=== PATIENT | male | born 1960 | race Caucasian/White ===

== ENCOUNTER 2016-04-12 18:56 | Emergency (ER) ==
--- NOTE | 2016-04-12 20:08 | PROVIDER DOCUMENTATION ---
HPI-Musculoskeletal Pain/Inj - GENERAL Chief Complaint: Extremity Pain Stated Complaint: BACK PAIN, LT LEG PAIN Time Seen by Provider: 04/12/16 20:00 Source: patient - HX OF PRESENT ILLNESS-MUSKULOSKELTAL Nature of Presenting Problem: 55 y/o M with history of seizures, HTN, depression, chronic LBP with left sided sciatica s/p back surgery to "remove bone spurs" in 1994 presents with left sided low back pain radiating down the left leg down to the knee x 3-4 months. He ambulates with a cane at baseline occasionally due to left leg pain. Pain is described as constant worse with getting up from a seated position and when walking. He has chronic numbness of left toes x 14 years. Denies any new numbness/tingling, weakness, bowel or bladder incontinence. Patient does not have a PCP right now. He has been out of his blood pressure medicine for 1 week. He is only seeing his psychiatrist for depression. Quality of Pain: reports: aching Severity in ED: moderate Onset/Duration: 1 week ago Timing: still present Any recent injury?: No Similar Symptoms Previously?: Yes Recently seen or treated by another doctor?: No Review of Systems - Adult - REVIEW OF SYSTEMS - ADULT Constitutional: reports: no symptoms reported. denies: chills, fever Eyes: reports: no symptoms reported. denies: decreased vision, blurred vision, double vision Ears, Nose, Mouth & Throat: reports: no symptoms reported. denies: ear pain, hearing loss Cardiovascular: reports: no symptoms reported. denies: chest pain Respiratory: reports: no symptoms reported. denies: cough, shortness of breath , wheezing Gastrointestinal: reports: no symptoms reported. denies: abdominal pain, nausea , vomiting Genitourinary: reports: no symptoms reported. denies: dysuria, flank pain, hematuria Musculoskeletal: reports: see HPI Integumentary: reports: no symptoms reported. denies: itching, rash Neurological: reports: see HPI Psychiatric: reports: no symptoms reported Endocrine: reports: no symptoms reported Hematologic/Lymphatic: reports: no symptoms reported Allergic/Immunologic: reports: no symptoms reported All Other Systems: Reviewed and Negative Past History - Adult - PAST MEDICAL HISTORY-ADULT Review of Records: reports: Nursing Assessment Review, Medications Reviewed Major Childhood Illnesses: reports: denies history Cardiovascular: reports: HTN Respiratory: reports: denies history Gastrointestinal: reports: GERD Obstetrical/Gynecological: reports: denies history Genitourinary: reports: denies history Musculoskeletal: reports: chronic pain Neurological: reports: Seizures/Epilepsy Psychiatric: reports: anxiety, depression Endocrine/Immune: reports: denies history Other Conditions: reports: denies history - PRIOR SURGERIES/PROCEDURES Surgical/Procedure History: reports: cholecystectomy, hernia repair, back/neck, other (hernia, testicular torsion) - IMMUNIZATION STATUS Childhood Immunizations: See Nurse Assessment Flu Vaccine: See Nurse Assessment - FAMILY HISTORY Family History: reviewed, not pertinent Physical Exam-Injury Related - Physical Exam-Injury Related Initial Vital Signs Reviewed: Yes General Appearance: appears well, alert, no apparent distress Eyes: PERRL/EOMI, pink conjunctivae Head, Ears, Nose, Mouth & Throat: normocephalic/atraumatic, moist mucous membranes Neck: non-tender, full range of motion, supple Respiratory: chest non-tender, lungs clear, normal breath sounds, no pleuratic chest pain, no respiratory distress, no accessory muscle use Cardiovascular: normal peripheral pulses, regular rate, rhythm, no edema, no gallop, no JVD, no murmur Abdominal Exam: normal bowel sounds, non tender, soft, no pulsatile mass Lymphatic: no adenopathy Back Exam: no CVA tenderness, no vertebral tenderness Extremity: other (walks with cane at baseline. left straight leg raise positive for pain). negative: pulse deficit, pedal edema, tenderness Integumentary: normal color, warm/dry. 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 negative: facial droop, focal weakness, motor weakness, sensory deficit Psych/Mental Status: normal mood/affect, normal thought content, normal thought process, oriented x 3 - Glascow Coma Score Best Eye Response (Gordon): (4) open spontaneously Best Verbal Response (Gordon): (5) oriented Best Motor Response (Gordon): (6) obeys commands [place] Total: 15 Progress - PLAN OF CARE/RESULTS Progress/Plan/Lab Results: Laboratory Tests 04/12/16 20:23 Sodium 142 Potassium 3.8 Chloride 102 Carbon Dioxide 28 Anion Gap 12 BUN 6 L Creatinine 0.7 Estimated GFR/1.73 m2 > 60 BUN/Creatinine Ratio 9 Glucose 93 Calculated Osmolality 280 Calcium 10.2 Orders Category Date Time Status FEMUR MIN 2 VIEWS LEFT [RAD] Stat Exams 04/12/16 19:22 Taken BMP [BASIC METABOLIC PANEL] [CHEM] Stat Lab 04/12/16 20:23 Completed Hydralazine [Apresoline] Med 04/12/16 20:16 Discontinued 10 mg IM NOW ONE Vital Signs Temp Pulse Resp BP Pulse Ox 04/12/16 21:47 71 18 173/94 100 04/12/16 19:11 98.1 F 83 18 174/134 96 aspirin Allergy (Mild, Verified 01/12/16 09:51) SWELLING facial swelling prednisone Allergy (Unknown, Verified 01/12/16 09:51) Unknown left arm swell Levetiracetam [Keppra] 1,000 mg PO DAILY #30 tablet 07/13/15 Lisinopril 20 mg PO DAILY #30 tablet 07/13/15 Bisoprolol Fumarate/Hctz [Bisoprolol-Hctz 5-6.25 mg Tab] 1 each PO DAILY Cyclobenzaprine [Flexeril] 10 mg PO HS #15 tablet 01/12/16 Hydrocodone/APAP 7.5 mg/325 mg [[place]-7.5] 1 each PO Q8H PRN PRN #10 tablet 07/22 Bisoprolol Fumarate/Hctz [Bisoprolol-Hctz 5-6.25 mg Tab] 1 each PO DAILY #30 tablet 04/12/16 Cyclobenzaprine [Flexeril] 10 mg PO TID #20 tablet 04/12/16 LISINOpril [Prinivil] 20 mg PO DAILY #30 tablet 04/12/16 Meloxicam [Mobic] 15 mg PO DAILY #14 tablet 04/12/16 Methylprednisolone [Medrol Dosepak] 4 mg PO DIRECTED #1 package 04/12/16 Laboratory 04/12/16 20:23 Sodium 142 Potassium 3.8 Chloride 102 Carbon Dioxide 28 Anion Gap 12 BUN 6 L Creatinine 0.7 Estimated GFR/1.73 m2 > 60 BUN/Creatinine Ratio 9 Glucose 93 Calculated Osmolality 280 Calcium 10.2 - REASSESSMENT Reassessment #1 Time Reassessed: 22:07 (BP improved without treatment. Will discharge home with refill of BP meds and symptomatic treatment for back pain. Advised patient to follow up with a PCP (info given with discharge paperwork) to follow up on BP and chronic back pain.) Status: improving - XRAY 1 XRAY: Left XRAY Study: Femur XRAY Interpretation: no acute process. hardware in good position. Departure - Departure Time of Disposition Order: 22:08 DIAGNOSIS: Chronic low back pain with left-sided sciatica, Hypertension, Elevated blood pressure reading, Noncompliance with medication regimen Disposition: HOME 01 Certified Medical Emergency: Emergent Condition: Good Additional Instructions: ED Follow Up Instructions: You have been treated by a care provider in the Emergency Department. These instructions are being provided to you so you can have an understanding of how to care for yourself upon discharge. Upon discharge from the Emergency Department, you are responsible for making arrangements for follow-up care by a physician of your choice. Take all prescribed medications as directed. Return to the Emergency Department immediately for any new or worsening symptoms. You may call the Physician Referral phone number at [phone] to obtain a list of Physicians who are taking new patients. Prescriptions: Bisoprolol Fumarate/Hctz [Bisoprolol-Hctz 5-6.25 mg Tab] 1 each PO DAILY #30 tablet Cyclobenzaprine [Flexeril] 10 mg PO TID #20 tablet Methylprednisolone [Medrol Dosepak] 4 mg PO DIRECTED #1 package Meloxicam [Mobic] 15 mg PO DAILY #14 tablet LISINOpril [Prinivil] 20 mg PO DAILY #30 tablet Referrals: None,PCP [Primary Care Provider] - Instructions: Back Pain, Adult, [id number], Hypertension Attestation - Physician/ KAYLA Attestation Patient care was provided by Advanced Practice Provider:: Yes Advanced Practice Provider:: Angela Fletcher Advanced Practice Provider documentation review:: The Mid-level provider documentation, treatment plan and medical decision making was reviewed by the physician who agrees with all treatment and medical decision making by the P.
[2016-04-12] MEDS ORDERED: APRESOLINE IM ONE (20:16)
[2016-04-12 21:07] LABS: AGAP 12; BUN 6 mg/dL (8-22); CALCIUM 10.2 mg/dL (8.8-10.2); CHLORIDE 102 mmol/L (98-107); COSMO 280; POTASSIUM 3.8 mmol/L (3.5-5.1); SODIUM 142 mmol/L (136-145); TCO2 28 mmol/L (25-35)
[2016-04-12 21:47] VITALS: BP 173/94
--- NOTE | 2016-04-13 08:59 | Diag Imaging Result Document ---
PROCEDURE NAME: FEMUR MIN 2 VIEWS LEFT - 04/12/2016 PLAIN RADIOGRAPH OF THE LEFT FEMUR, 4 VIEWS: COMPARISON: 01/12/2016. FINDINGS: The left femoral medullary bell is in stable position. There is irregularity involving the proximal femur related to a healed fracture. There is no definite acute fracture. There are degenerative changes at the left acetabular roof. These are stable. The left hip joint space appears to be preserved. IMPRESSION: Chronic-appearing posttraumatic changes at the proximal femur. No definite acute osseous abnormality.
== END 2016-04-12 22:08 | disposition home or self-care (01) ==
LOC: ED 18:56
DX: M54.42 Lumbago with sciatica, left side (principal); G89.29 Other chronic pain; I10 Essential (primary) hypertension; Z91.14 Patient's other noncompliance with medication regimen; M79.605 Pain in left leg; M25.562 Pain in left knee; M25.561 Pain in right knee; R56.9 Unspecified convulsions; Z79.899 Other long term (current) drug therapy
CPT/HCPCS: 80048

== ENCOUNTER 2018-02-23 10:44 | Inpatient (IN) ==
[2018-02-23] MEDS ORDERED: NS 1,000 ML ONE ×2 (11:19→18:31)
[2018-02-23 11:51] LABS: HEMATOCRIT 40.6 % (42.0-52.0); HEMOGLOBIN 13.3 g/dL (14.0-18.0); IMM GRAN# 0.03 X1000 (0.0-0.04); IMM GRAN% 0.2 % (0.0-0.5); LYMPH# 1.19 X1000 (1.2-3.4); LYMPH% 7.5 % (20.5-51.1); MCHC 32.8 g/dL (33-37); MCV 94.6 FL (81-99); MONO% 6.9 % (1.7-9.3); MPV 11.6 FL (7.4-10.4); NEUT# 13.51 X1000 (1.4-6.5); NEUT% 85.4 % (42.2-75.2); PLT 256 X1000 (130-400); RBC 4.29 XMIL (4.7-6.1); WBC 15.83 X1000 (4.8-10.8)
[2018-02-23] MEDS ORDERED: NS 1,000 ML IV ONE (11:52)
[2018-02-23 11:55] LABS: ALBUMIN 3.4 g/dL (3.5-5.0); CALCIUM 9.9 mg/dL (8.8-10.2); CREATININE 2.2 mg/dL (0.7-1.2); POTASSIUM 4.1 mmol/L (3.5-5.1); TOTAL BILIRUBIN 0.7 mg/dL (0.20-1.00); TOTAL PROTEIN 6.6 g/dL (6.3-8.3)
[2018-02-23 11:59] LABS: BILIRUBIN URINE NEGATIVE (NEGATIVE); BLOOD URINE TRACE (NEGATIVE); CLARITY CLEAR (CLEAR); COLOR YELLOW; GLUCOSE URINE NEGATIVE (NEGATIVE); KETONE URINE TRACE mg/dL (NEGATIVE); LEUKOCYTES URINE TRACE (NEGATIVE); NITRITE URINE POSITIVE (NEGATIVE); PROTEIN URINE 1+(30 mg/dL) mg/dL (NEGATIVE); SP GRAVITY URINE 1.025; UROBILINOGEN URINE NORMAL
[2018-02-23 12:13] LABS: UR AMPHETAMINES QUAL NONE DETECTED (NONE DETECT); UR BARBITUATES QUAL NONE DETECTED (NONE DETECT); UR BENZODIAZEPIN QUAL NONE DETECTED (NONE DETECT); UR CANNABINOIDS QUAL PRESUMPTIVE POSITIVE (NONE DETECT); UR COCAINE QUAL NONE DETECTED (NONE DETECT); UR METHADONE QUAL NONE DETECTED (NONE DETECT); UR METHAMPHETAMINE QUAL NONE DETECTED (NONE DETECT); UR OPIATES QUAL NONE DETECTED (NONE DETECT); UR OXYCODONE QUAL NONE DETECTED (NONE DETECT); UR PCP QUAL NONE DETECTED (NONE DETECT); UR PROPOXYPHENE QUAL NONE DETECTED (NONE DETECT); UR TCA QUAL NONE DETECTED (NONE DETECT)
[2018-02-23 12:48] LABS: URINE BACTERIA 2+ /HFP; URINE EPITHELIAL CELLS <10 /HPF (<10); URINE RBC <10 /HPF (<10); URINE SOURCE CATH
[2018-02-23] MEDS ORDERED: BENADRYL ONE (13:10)
[2018-02-23] MEDS ORDERED: BENADRYL IM ONE (13:21)
--- NOTE | 2018-02-23 14:42 | EKG Report ---
Test Performed on : 02/23/2018 11:17:52 AM Test Reason : ams Blood Pressure : / mmHG Vent. Rate : 059 BPM Atrial Rate : 059 BPM P-R Int : 156 ms QRS Dur : 096 ms QT Int : 444 ms P-R-T Axes : 024 053 043 degrees QTc Int : 439 ms Sinus bradycardia. Otherwise normal ECG When compared with ECG of 18-MAY-2016 14:59, No significant change was found Unconfirmed Result
[2018-02-23] MEDS ORDERED: ATIVAN IV ONE ×2 (14:53→20:49)
[2018-02-23] MEDS ORDERED: ATIVAN ONE (14:56)
[2018-02-23] MEDS ORDERED: ATIVAN IM ONE ×2 (15:07→15:39)
[2018-02-23] MEDS ORDERED: HALDOL ONE (18:13)
[2018-02-23] MEDS: HALDOL IM PRN ×2 (18:21→22:30)
[2018-02-23] MEDS ORDERED: ZOFRAN IV PRN (18:40)
[2018-02-23] MEDS ORDERED: TYLENOL PO PRN (18:40)
[2018-02-23] MEDS: ATIVAN IV PRN ×2 (19:15→23:19)
[2018-02-23] MEDS ORDERED: TYLENOL PR PRN (19:43)
--- NOTE | 2018-02-23 20:04 | HISTORY AND PHYSICAL ---
PRIMARY CARE PHYSICIAN: Unknown. CHIEF COMPLAINT: Was brought in by EMS after he was found unresponsive. EMS did a sternal rub and the patient woke up but would only state "oh shit." HISTORY OF PRESENTING ISSUE: 57-year-old male presents to [facility] ER via EMS after he was found unresponsive by his this morning. Apparently she and her smoke marijuana and it is felt that they both may have possibly had laced marijuana with spice. The patient responded to EMS by sternal rub but would only answer "oh shit" not able to answer any questions. He is confused, agitated, flailing his arms in the bed at times. If you do a sternal rub he began to flail his arms and say "oh shit. " over and over. His workup in the emergency room showed a white blood cell count of 15.83, his creatinine was 2.2. Urinalysis showed positive nitrites, trace white blood cell 2+ bacteria , his urine drug was presumptive for cannabinoids so he will be admitted to the medical unit for further evaluation and treatment . PAST MEDICAL HISTORY: Per ER record showed hypertension, GERD, chronic pain, seizures, anxiety and depression. PAST SURGICAL: Per ER record cholecystectomy, hernia repair, back and neck surgery and testicular torsion . FAMILY HISTORY: Reviewed noncontributory. SOCIAL HISTORY: Currently lives with his has been a smoker up until about 6 months ago approximately denied alcohol use per the record and uses marijuana daily but unknown amount . ALLERGIES: Aspirin and prednisone. HOME MEDICATIONS: A current list will need to be obtained and restarted as appropriate placed a order for nursing to update and confirm medications. LABORATORY DATA: Showed a white blood cell count of 15.83 , hemoglobin 13.3, hematocrit 0.6, platelets 256,000, sodium 138, potassium 4.1, chloride 101 , CO2 19, BUN 13, creatinine 2.2, glucose 100. Urinalysis with positive nitrites, trace white blood cells, 2+ bacteria. Urine drug screen presumptive positive for cannabinoid, EKG showed sinus bradycardia at 59. REVIEW OF SYSTEMS: Unable to obtain from patient. PHYSICAL EXAMINATION: Arrival he had a temperature 96, pulse 79, respirations 28, blood pressure has not been documented. GENERAL: This is a 57-year-old male lying in the bed unable to answer questions, is agitated, requires sternal rub for any arousing. He began to flail his arms and say " oh shit" over and over. HEENT: Normocephalic, atraumatic. Normal ENT inspection. Oropharynx and nares are clear. His eyes are dilated but equal and respond to light accommodation, extraocular movements are intact. LUNGS: Clear to auscultation bilaterally with equal lung expansion and chest wall movement. HEART: With regular rate and rhythm. No murmurs, rubs or gallops. ABDOMEN: Soft, nontender, nondistended. Bowel sounds are present x4 quadrants. MUSCULOSKELETAL: Unable to assess due to patient's mentation. NEUROLOGICAL: Unable to assess due to patient's mentation. ASSESSMENT: 1. Altered mental status most likely secondary to marijuana use that is most likely been laced with spice. 2. Urinary tract infection. 3. Leukocytosis. 4. Acute kidney injury. 5. Marijuana abuse. PLAN: He will be admitted to medical unit placed on telemetry, held NPO, placed on normal saline at 125 mL an hour, Rocephin 1 gram IV q.24, urine culture is pending, we obtained a Keppra level but that is a send out so it will be later before we get those results, I placed an order for nursing to update and home medication, will recheck a CBC, BMP in the a.m. Dictated by JESU Das for Sanjay Garcia MD cc: JESU Das MD [facility]
[2018-02-23] MEDS ORDERED: NS 500 ML IV ONE (20:12)
[2018-02-23] MEDS ORDERED: LEVOPHED 8 MG in D5 1/2 NS 250 ML IV SCH (20:15)
[2018-02-23] MEDS: ROCEPHIN 1 GM in NS 50 ML IV SCH (20:23)
[2018-02-23] MEDS: GEODON IM PRN (20:39)
[2018-02-23] MEDS: STERILE WATER INJ. INJ PRN (20:39)
[2018-02-23] MEDS: NS 1,000 ML IV SCH (20:57)
[2018-02-24] MEDS: ATIVAN IV PRN ×3 (04:16→20:20)
[2018-02-24] MEDS: NS 1,000 ML IV SCH ×2 (04:17→17:06)
[2018-02-24] MEDS: HALDOL IM PRN ×2 (04:29→09:43)
--- NOTE | 2018-02-24 05:00 | HISTORY AND PHYSICAL ---
ADDENDUM: This patient has been seen and examined by me [id number]. All the laboratories and vital signs were reviewed. The patient was sent to the emergency department apparently because of seizures, but then we found out that this patient was doing drugs, especially spice. This patient has been extremely agitated on and off and he has been getting treatment for that on and off as well. Apparently, as per the daughter he was using drugs with his and a neighbor. Actually his has also been hospitalized, but the neighbor did not have any problems with the drug. He is completely disoriented, agitated, and occasionally when he gets tired he is lethargic. He is been placed on restraints and he is not following commands. Blood pressure and heart rate has been stable, as well as his oxygen saturation. I have been noticing that every time this patient is sleeping he got a severe apnea. Probably this patient has sleep apnea at home, but I do not have any family members to corroborate this information. I will put this patient in the ICU, I will give him some IV fluids. Like I said he has been placed on restraints to avoid any physical problems and/or damage. We will use mostly Haldol to try to keep him relaxed. No family members are at the bedside at this moment. LABORATORY DATA: Showed a WBC of 15.8, hemoglobin 13.3, hematocrit 40.6. Sodium 138, potassium 4.1, chloride 101, bicarbonate 19, with a creatinine of 2.2 which is high. This patient has an acute kidney injury, and we will treat it with IV fluids. On the other hand he has bacteria 2+ in the urine as well as nitrites and WBCs. We will place this patient on ceftriaxone. We requested a urine culture, and I will go ahead and ask for blood culture as well. I agree with the rest of the nurse practitioner's assessment and plan. cc: Sanjay Garcia MD
--- NOTE | 2018-02-24 05:08 | HISTORY AND PHYSICAL ---
ADDENDUM: The patient is seen and examined by me [id number]. All the laboratories, images and vital signs. Consult please discard this dictation. Discard this dictation done putting please seek discard this dictation thank. DICTATION CANCELLED. cc: Sanjay Garcia MD
[2018-02-24 06:14] LABS: BASO# 0.01 X1000 (0.0-0.2); BASO% 0.1 % (0.0-0.8); HEMATOCRIT 39.6 % (42.0-52.0); HEMOGLOBIN 12.9 g/dL (14.0-18.0); IMM GRAN# 0.02 X1000 (0.0-0.04); IMM GRAN% 0.2 % (0.0-0.5); LYMPH# 2.35 X1000 (1.2-3.4); LYMPH% 20.8 % (20.5-51.1); MCHC 32.6 g/dL (33-37); MCV 95.2 FL (81-99); MONO# 1.12 X1000 (0.11-0.59); MONO% 9.9 % (1.7-9.3); MPV 11.7 FL (7.4-10.4); NEUT# 7.81 X1000 (1.4-6.5); PLT 212 X1000 (130-400); RBC 4.16 XMIL (4.7-6.1); RDW 15.4 % (11.5-14.5); WBC 11.31 X1000 (4.8-10.8)
[2018-02-24 06:30] LABS: AGAP 17; BUN 14 mg/dL (8-22); CALCIUM 9.3 mg/dL (8.8-10.2); CHLORIDE 111 mmol/L (98-107); COSMO 291; ESTIMATED GFR > 60; GLUCOSE 103 mg/dL (70-104); POTASSIUM 4.2 mmol/L (3.5-5.1); SODIUM 146 mmol/L (136-145); TCO2 18 mmol/L (25-35)
--- NOTE | 2018-02-24 08:05 | Diag Imaging Result Doc PS360 ---
EXAM: CHEST-PORTABLE INDICATION: dyspnea TECHNIQUE: One view COMPARISON: 11/19/2017 FINDINGS: The lungs are grossly clear. There is no discrete pleural fluid collection or pneumothorax. The cardiomediastinal silhouette and central vasculature are grossly unremarkable. IMPRESSION: No evidence of acute pathology by plain radiograph. Electronically signed by Jorge A Montgomery 02/24/2018 8:02 AM
[2018-02-24] MEDS ORDERED: LEVOPHED 8 MG in D5 1/2 NS 250 ML IV PRN (08:30)
[2018-02-24] MEDS: KEPPRA 1,000 MG/NS 1,000 MG/100 ML IVPB IV SCH ×2 (10:35→23:12)
[2018-02-24] MEDS: STERILE WATER INJ. INJ PRN ×2 (10:44→23:41)
[2018-02-24] MEDS: GEODON IM PRN ×2 (10:44→23:11)
[2018-02-24] MEDS: HALDOL IV PRN ×4 (12:11→23:12)
[2018-02-24] MEDS ORDERED: HALDOL IV ONE (12:28)
[2018-02-24] MEDS ORDERED: ATIVAN IV ONE (13:26)
--- NOTE | 2018-02-24 14:58 | PROGRESS NOTE ---
DATE: 02/24/2018 SUBJECTIVE: The patient is very agitated and has been very restless. He is not able to communicate because of his condition. OBJECTIVE: Vital signs: Temperature is 99.9 degrees, pulse 108 per minute, respiratory rate 22 per minute, blood pressure 106/70, pulse oximetry 98% on room air. General: The patient is agitated and is not able to communicate because of his drug overdose. Cardiovascular: First and second heart sounds are audible. Regular tachycardia is present. No murmurs or gallops are present. Respiratory: Bilateral lung air entry is good without any rales or rhonchi. Gastrointestinal: Abdomen is soft and nondistended. It is nontender on palpation, and normal bowel sounds are present. Musculoskeletal: No deformities are present. DIAGNOSTIC DATA: CBC shows reactive leukocytosis with WBC count of 11.31. The rest of the CBC is nondiagnostic. Basic metabolic panel done this morning is nondiagnostic, and urinalysis done yesterday showed 10 to 20 white blood cells per high-power field. Toxicology was positive for cannabinoids. IMPRESSION: 1. Altered mental status secondary to drug overdose secondary to marijuana suspected to be laced with "spice." 2. Urinary tract infection. 3. Acute kidney injury that has now resolved. 4. History of seizure disorder that has been stable. 5. Agitation, secondary to number 1. PLAN: The patient will remain in the Intensive Care Unit, and he will keep getting Haldol along with lorazepam IV on as needed basis for acute agitation. He will also get Geodon IM on as needed basis for acute agitation. We will see once his drug overdose gets better and the street drugs get out of his system. We will keep giving him IV fluids, and I am going to continue with ceftriaxone for urinary tract infection. His acute kidney injury has improved with IV fluids, however. Also, I have restarted his Keppra as IV for his seizure disorder. Further recommendations will be given as per outcome of these measures. cc: David Chambers MD
[2018-02-24] MEDS: ROCEPHIN 1 GM in NS 50 ML IV SCH (18:17)
[2018-02-25] MEDS: OFIRMEV 1000 MG/ISOTONIC SOLN 1,000 MG/100 ML BOTTLE IV PRN ×2 (00:45→15:12)
[2018-02-25] MEDS: NS 1,000 ML IV SCH ×3 (01:10→19:30)
[2018-02-25] MEDS: ATIVAN IV PRN ×5 (01:19→23:51)
[2018-02-25] MEDS: HALDOL IV PRN ×5 (01:28→23:50)
[2018-02-25] MEDS: MORPHINE IV PRN ×6 (02:31→23:50)
[2018-02-25] MEDS: KEPPRA 1,000 MG/NS 1,000 MG/100 ML IVPB IV SCH ×2 (10:29→23:49)
--- NOTE | 2018-02-25 10:53 | PROGRESS NOTE ---
DATE: 02/25/2018 SUBJECTIVE: Patient is lying in bed and is more awake this morning. He is able to communicate at times, although he still gets somewhat agitated at times.. OBJECTIVE: Vital Signs: Temperature 99.1 degrees, pulse 110 per minute, respiratory rate 16 per minute, blood pressure 150/88, pulse ox 97% on room air. General: Patient is alert, awake, but disoriented. He does not appear to be in any acute distress this morning. Cardiovascular System: First and second heart sounds are audible with regular tachycardia present. Respiratory System: Bilateral lung air entry is slightly decreased, but there are no rales or rhonchi present on auscultation. Gastrointestinal System: Abdomen is soft and nondistended. It is nontender on palpation and normal bowel sounds are present. DIAGNOSTIC DATA: None. IMPRESSION: 1. Altered mental status secondary to drug overdose secondary to marijuana suspected to be laced with spice. 2. Urinary tract infection. 3. History of seizure disorder that has been stable. PLAN: The patient will remain in the intensive care unit, and we will keep him on haloperidol along with lorazepam IV on an as-needed basis for acute agitation. He is suspected to have used spice, which has a very long half-life of 3 to 4 days and therefore he is expected to take a little bit longer to get better. We will continue him on IV fluids and continue with ceftriaxone for his urinary tract infection. His acute kidney injury has resolved. We will continue him on Keppra intravenously for his seizure disorder. He can probably get better and be discharged home in 2 to 3 days if continues to get better the way he has been. cc: David Chambers MD
[2018-02-25] MEDS: ROCEPHIN 1 GM in NS 50 ML IV SCH (17:46)
[2018-02-25] MEDS: GEODON IM PRN (19:55)
[2018-02-26] MEDS: HALDOL IV PRN ×2 (03:58→20:28)
[2018-02-26] MEDS: ATIVAN IV PRN ×3 (03:59→20:28)
[2018-02-26] MEDS: MORPHINE IV PRN ×5 (03:59→20:34)
[2018-02-26 06:30] LABS: EOS# 0.33 X1000 (0.0-0.7); EOS% 2.4 % (0.0-10.0); HEMATOCRIT 40.8 % (42.0-52.0); HEMOGLOBIN 13.1 g/dL (14.0-18.0); IMM GRAN# 0.04 X1000 (0.0-0.04); IMM GRAN% 0.3 % (0.0-0.5); LYMPH% 7.3 % (20.5-51.1); MCH 30.5 PG (27-31); MCHC 32.1 g/dL (33-37); MCV 95.1 FL (81-99); MONO# 1.31 X1000 (0.11-0.59); MONO% 9.5 % (1.7-9.3); MPV 12.3 FL (7.4-10.4); NEUT# 11.04 X1000 (1.4-6.5); NEUT% 80.5 % (42.2-75.2); PLT 214 X1000 (130-400); RBC 4.29 XMIL (4.7-6.1); RDW 15.8 % (11.5-14.5); WBC 13.72 X1000 (4.8-10.8)
[2018-02-26 07:15] LABS: ESTIMATED GFR > 60
[2018-02-26 07:16] LABS: AGAP 20; BUN 13 mg/dL (8-22); CALCIUM 10.3 mg/dL (8.8-10.2); CHLORIDE 115 mmol/L (98-107); COSMO 299; CREATININE 0.6 mg/dL (0.7-1.2); GLUCOSE 112 mg/dL (70-104); MAGNESIUM 1.9 mg/dL (1.5-2.7); POTASSIUM 4.4 mmol/L (3.5-5.1); SODIUM 150 mmol/L (136-145); TCO2 15 mmol/L (25-35)
[2018-02-26] MEDS: KEPPRA 1,000 MG/NS 1,000 MG/100 ML IVPB IV SCH ×2 (10:06→22:08)
[2018-02-26] MEDS: NS 1,000 ML IV SCH (10:14)
[2018-02-26] MEDS: 1/2 NS 1,000 ML IV SCH ×2 (13:31→22:13)
--- NOTE | 2018-02-26 13:45 | PROGRESS NOTE ---
DATE: 02/26/2018 SUBJECTIVE: The patient continues to have agitation, although it is much better as compared to the previous few days. He continues to be incoherent and is not oriented. He does respond to verbal stimuli. OBJECTIVE: Vital Signs: Temperature 98.5 degrees, pulse 122 per minute, respiratory rate 20 per minute, blood pressure 156/63, pulse oximetry 96% on room air. General: Patient is awake but disoriented. He is not in any acute distress otherwise. Cardiovascular: First and second heart sounds are audible with regular tachycardia. Respiratory: No respiratory distress noted. Bilateral lung air entry is good without any rales or rhonchi. Gastrointestinal : Abdomen is soft and nontender. Normal bowel sounds are present. DIAGNOSTIC DATA: CBC shows WBC count of 13.72. Rest of the CBC is nondiagnostic. Chemistry showed sodium levels of 150 with chloride of 115 and CO2 of 15. Rest of the basic metabolic panel is nondiagnostic. IMPRESSION: 1. Accidental drug overdose with marijuana that is suspected to be laced with spice causing him to have altered mental status. 2. Urinary tract infection. 3. Seizure disorder. 4. Hypernatremia. PLAN: The patient will be continued with care in the intensive care unit and will continue to get haloperidol along with lorazepam on as-needed basis for altered mental status and agitation. He will continue with ceftriaxone intravenously for his urinary tract infection and I am going to switch his normal saline to half-normal saline because of hypernatremia. He will continue with Keppra intravenously for his history of seizure disorder. Further recommendations will be given as per hospital course. cc: MD YAMILEX Onofre
[2018-02-26] MEDS: ROCEPHIN 1 GM in NS 50 ML IV SCH (18:40)
[2018-02-27] MEDS: 1/2 NS 1,000 ML IV SCH (01:05)
[2018-02-27] MEDS: MORPHINE IV PRN ×5 (03:05→23:28)
[2018-02-27 07:47] LABS: AGAP 18; BUN 8 mg/dL (8-22); CALCIUM 9.9 mg/dL (8.8-10.2); CHLORIDE 112 mmol/L (98-107); COSMO 295; CREATININE 0.6 mg/dL (0.7-1.2); ESTIMATED GFR > 60; GLUCOSE 112 mg/dL (70-104); POTASSIUM 3.6 mmol/L (3.5-5.1); SODIUM 149 mmol/L (136-145); TCO2 19 mmol/L (25-35)
[2018-02-27] MEDS ORDERED: D5W 1,000 ML IV SCH (08:00)
[2018-02-27 09:44] LABS: BASO# 0.01 X1000 (0.0-0.2); BASO% 0.1 % (0.0-0.8); HEMATOCRIT 41.1 % (42.0-52.0); HEMOGLOBIN 13.6 g/dL (14.0-18.0); IMM GRAN# 0.04 X1000 (0.0-0.04); IMM GRAN% 0.3 % (0.0-0.5); LYMPH% 16.7 % (20.5-51.1); MCH 31.2 PG (27-31); MCHC 33.1 g/dL (33-37); MCV 94.3 FL (81-99); MONO# 1.73 X1000 (0.11-0.59); MONO% 12.5 % (1.7-9.3); MPV 12.9 FL (7.4-10.4); NEUT# 9.73 X1000 (1.4-6.5); NEUT% 70.4 % (42.2-75.2); PLT 217 X1000 (130-400); RBC 4.36 XMIL (4.7-6.1); RDW 15.8 % (11.5-14.5); WBC 13.81 X1000 (4.8-10.8)
--- NOTE | 2018-02-27 10:20 | PROGRESS NOTE ---
DATE: 02/27/2018 SUBJECTIVE: Patient reports feeling better. Reports severe pain in the left lower extremity. Denies any fever or chills. OBJECTIVE: Vitals: Temperature 98.7, heart rate, 110, respiratory rate 16, blood pressure 155/86, oxygen saturation 96% on room air. General examination: This is a 57- year-old male, lying in bed in no acute distress. Cardiovascular exam: S1, S2 heard. No murmurs, gallops, or rubs. Regular rate and rhythm. Respiratory exam: Clear bilaterally to auscultation. No work of breathing or using accessory muscles. Abdomen: Soft, nontender to palpation. Bowel sounds present. No organomegaly. Extremities: There is moderate pain to palpation in the left femur. Neurological exam: Patient alert and oriented x3. Moves 4 extremities. LABORATORY DATA: White cell count of 10.81, hemoglobin 13.6, hematocrit 41.1, platelets 217. BMP is showing sodium 149, potassium 112, creatinine 0.6. ASSESSMENT AND PLAN: 1. Accidental drug overdose with marijuana that is suspected to be also spice. The patient is definitely more awake, more stable, not agitated overnight. At this point, I think we can transfer him to a regular floor today. 2. Acute kidney injury. That condition is completely resolved. 3. Urinary tract infection. The patient is on ceftriaxone since admission 4 days with this medication. The white cell count is still elevated, so we will continue with the same management. 4. Seizure disorder. Patient has been placed on Keppra. 5. Hyponatremia. Patient is on D5W at 150 mL/hour. We will continue with the same management. 6. Severe left pain. We are going to do a CT scan of the left lower extremity and we will go from there. 7. Disposition: We will continue to monitor this patient closely in the hospital, but he can be moved to a regular floor today. cc: James Nogueira MD MTDD
[2018-02-27] MEDS: KEPPRA 1,000 MG/NS 1,000 MG/100 ML IVPB IV SCH ×2 (10:55→22:34)
--- NOTE | 2018-02-27 10:59 | Diag Imaging Result Doc PS360 ---
EXAM: CT EXT LOWER LEFT W/O CON - 02/27/2018 HISTORY: severe Left lower extremity pain TECHNIQUE: CT left femur without contrast COMPARISON: None. FINDINGS: There is an old fracture deformity of the intertrochanteric left femur. The fracture is fixated by a metallic orthopedic bell which extends from the intertrochanteric region, through the neck and into the head of the femur. This bell is anchored at the intertrochanteric region by an intramedullary bell. This intramedullary bell is anchored at the distal femur by two screws. The bell data which fixates the old intertrochanteric fracture protrudes beyond the superior margin of the femoral head and into the hip joint by approximately 4.5 mm. The bell to may touch to the acetabular roof but does not extend into the acetabulum. There are no erosive or destructive changes identified at the acetabulum. There are moderate osteoarthritic changes at the left hip. There is heterogeneous bony density at the neck at distal head of the left femur which likely relates to old injury/surgery. There is no discrete acute fracture identified. There are no discrete erosive or destructive changes identified to suggest osteomyelitis. IMPRESSION: Posttraumatic/postsurgical deformity of proximal left femur from old intertrochanteric fracture with surgical fixation. The bell which fixates the old fracture extends through the superior margin of the femoral head into the hip joint space, by approximately 4.5 mm. No discrete acute fracture. Moderate osteoarthritic changes at left hip. This exam was performed using automated exposure control, adjustment of mA or kV according to patient size, and/or use of iterative reconstruction technique. Electronically signed by Randy Harkins 02/27/2018 10:57 AM
[2018-02-27] MEDS: D5W 1,000 ML IV SCH ×2 (16:21→22:35)
[2018-02-27] MEDS: ROCEPHIN 1 GM in NS 50 ML IV SCH (18:23)
[2018-02-28] MEDS: MORPHINE IV PRN ×4 (03:23→21:15)
[2018-02-28] MEDS: D5W 1,000 ML IV SCH (05:16)
[2018-02-28 06:17] LABS: BASO# 0.01 X1000 (0.0-0.2); BASO% 0.1 % (0.0-0.8); HEMATOCRIT 40.4 % (42.0-52.0); HEMOGLOBIN 13.5 g/dL (14.0-18.0); IMM GRAN# 0.03 X1000 (0.0-0.04); IMM GRAN% 0.3 % (0.0-0.5); LYMPH# 2.41 X1000 (1.2-3.4); LYMPH% 21.9 % (20.5-51.1); MCH 30.8 PG (27-31); MCHC 33.4 g/dL (33-37); MCV 92.2 FL (81-99); MONO# 1.19 X1000 (0.11-0.59); MONO% 10.8 % (1.7-9.3); MPV 12.2 FL (7.4-10.4); NEUT# 7.38 X1000 (1.4-6.5); NEUT% 66.9 % (42.2-75.2); PLT 215 X1000 (130-400); RBC 4.38 XMIL (4.7-6.1); RDW 15.1 % (11.5-14.5); WBC 11.02 X1000 (4.8-10.8)
[2018-02-28 06:30] LABS: AGAP 12; BUN 5 mg/dL (8-22); CALCIUM 9.4 mg/dL (8.8-10.2); CHLORIDE 100 mmol/L (98-107); COSMO 276; CREATININE 0.4 mg/dL (0.7-1.2); ESTIMATED GFR > 60; GLUCOSE 126 mg/dL (70-104); POTASSIUM 2.8 mmol/L (3.5-5.1); SODIUM 139 mmol/L (136-145); TCO2 27 mmol/L (25-35)
[2018-02-28] MEDS: POTASSIUM CHLORIDE 60 MEQ in NS 500 ML IV SCH ×2 (08:32→16:21)
--- NOTE | 2018-02-28 10:02 | PROGRESS NOTE ---
DATE: 02/28/2018 SUBJECTIVE: The patient reports still hurting in the left leg that is moderate to severe. Denies any fever or chills, any palpitation. OBJECTIVE: Vital Signs: Temperature 98.9 degrees, heart rate 84, respiratory 17, blood pressure 123/97. O2 saturation 97% on room air. General examination: This is a 57-year-old male, lying in bed in no acute distress. HEENT: Head is normocephalic, atraumatic. Mucous membranes dry. Neck: No JVD noted. No carotid bruits. No lymphadenopathy. No thyromegaly. Cardiovascular exam: S1, S2 heard. No murmurs, gallops, or rubs. Regular rate and rhythm. Respiratory exam: Clear bilaterally to auscultation. No work of breathing or using accessory muscles. Abdomen: Soft, nontender to palpation. Bowel sounds present. No organomegaly. Extremities: There is moderate pain to palpation around the left hip. No crepitation noted. Peripheral pulses present in both legs. Neurological exam: Patient alert and oriented x3. Moves 4 extremities. LABORATORY DATA: White cell count 11.02, hemoglobin 13.5, hematocrit 40.4, platelets 215 with BMP remarkable for potassium 2.8. ASSESSMENT AND PLAN: 1. Accidental overdose with marijuana. There was also suspected to be also spice. Clinically, this patient is more awake, alert. He has not been agitated overnight. I think this patient is stable. He will be transferred to a regular room today. 2. Acute kidney injury. Completely resolved. 3. Urinary tract infection. Patient has been on ceftriaxone for 5 days. White cell count is almost back to normal. He is not complaining of any burning on urination. So, I think at this point, we are going to stop antibiotics. 4. Seizure disorder. The patient has been placed on Keppra. No seizures while this patient has been here. We will continue with the same management. 5. Hypernatremia. The patient has been placed on D5W at 150 mL/hour since yesterday, and today the sodium is normal, so we will discontinue it. 6. Hypokalemia. Will provide potassium chloride today and will check basic metabolic panel tomorrow. 7. Severe, left hip pain. CT of the hip shows changes as we mentioned above. So, considering that this patient is not able to stand up completely fine and considering that this patient was using marijuana in order to treat pain because his pain doctor refused to continue prescribing medications for him. I think it is reasonable to send this patient to [facility] to have Dr. Prado evaluate him. 8. Disposition: As we mentioned before, we will repeat potassium today and will send this patient to [facility] for evaluation by Orthopedics. cc: James Nogueira MD
[2018-02-28] MEDS: ZEBETA PO SCH (10:26)
[2018-02-28] MEDS: KEPPRA PO SCH ×2 (10:26→21:14)
[2018-02-28] MEDS: LIORESAL PO SCH ×2 (15:05→17:34)
[2018-02-28] MEDS ORDERED: KEPPRA PO SCH (21:00)
[2018-03-01] MEDS: MORPHINE IV PRN ×2 (05:19→18:50)
[2018-03-01 07:05] LABS: BASO# 0.01 X1000 (0.0-0.2); BASO% 0.1 % (0.0-0.8); HEMATOCRIT 39.1 % (42.0-52.0); HEMOGLOBIN 12.8 g/dL (14.0-18.0); IMM GRAN# 0.03 X1000 (0.0-0.04); IMM GRAN% 0.4 % (0.0-0.5); LYMPH# 2.14 X1000 (1.2-3.4); LYMPH% 25.9 % (20.5-51.1); MCH 30.6 PG (27-31); MCHC 32.7 g/dL (33-37); MCV 93.5 FL (81-99); MONO# 1.07 X1000 (0.11-0.59); MPV 12.2 FL (7.4-10.4); NEUT% 60.6 % (42.2-75.2); PLT 212 X1000 (130-400); RBC 4.18 XMIL (4.7-6.1); RDW 15.2 % (11.5-14.5); WBC 8.25 X1000 (4.8-10.8)
[2018-03-01 07:10] LABS: AGAP 10; BUN 4 mg/dL (8-22); CALCIUM 9.1 mg/dL (8.8-10.2); CHLORIDE 104 mmol/L (98-107); COSMO 280; CREATININE 0.5 mg/dL (0.7-1.2); ESTIMATED GFR > 60; GLUCOSE 105 mg/dL (70-104); SODIUM 142 mmol/L (136-145); TCO2 27 mmol/L (25-35)
[2018-03-01] MEDS ORDERED: POTASSIUM CHLORIDE 60 MEQ in NS 500 ML IV ONE (08:44)
--- NOTE | 2018-03-01 10:04 | PROGRESS NOTE ---
DATE: 03/01/2018 SUBJECTIVE: The patient reports still hurting on the left leg. Pain is moderate to severe, and he is not able to stand up completely fine because of the pain. Denies any other complaints. OBJECTIVE: Vital Signs: Temperature 97.6 degrees, heart rate 84, respiratory rate 20, blood pressure 157/76, O2 saturation 97% on room air. General: This is a 57-year-old male, lying in bed, in no acute distress. Cardiovascular: S1, S2 heard. No murmurs, gallops, or rubs. Regular rate and rhythm. Respiratory: Clear bilaterally to auscultation. No work of breathing or using accessory muscles. Abdomen: Soft, nontender to palpation. Bowel sounds present. No organomegaly. Extremities: Moderate pain to palpation around the left hip, but no crepitation noted. No edema noted. No drainage noted coming out. Peripheral pulses present in both legs. Neurological: Patient is alert and oriented x3. Moves 4 extremities. LABORATORY DATA: White cell count 8.25, hemoglobin 12.8, hematocrit 39.1, platelets 212,000. BMP shows creatinine 0.5 with potassium 3.0. ASSESSMENT AND PLAN: 1. Accidental overdose with marijuana. There was also suspected to be some spice inside, but clinically this patient is more alert and awake. I think this condition is completely resolved. 2. Acute kidney injury, resolved. 3. Urinary tract infection. Patient has received 5 days of ceftriaxone. White cell count is back to normal. That is why we have stopped the antibiotic yesterday. 4. Seizure disorder. Patient is on Keppra. No report of any seizures while this patient has been in the hospital. We will continue with the same management. 5. Hyponatremia, resolved. 6. Hypokalemia. Potassium is still very low. It is 2.8 yesterday and 3.0 today. He has received so far 60 mEq of potassium IV x2. At this point, we will provide 60 mEq just one, and we will check BMP tomorrow. 7. Severe left hip pain. CT of the hip showed changes as we mentioned before. We have consulted his primary orthopedic surgeon, Dr. Prado, because this patient has very severe pain in that joint. At this point, he is going to be transferred to a regular room in this hospital and then whenever there is a bed, will transfer him to [facility]. cc: James Nogueira MD
[2018-03-01] MEDS: KEPPRA PO SCH ×2 (10:18→21:39)
[2018-03-01] MEDS: ZEBETA PO SCH (10:19)
[2018-03-01] MEDS: PEPCID PO SCH (10:19)
[2018-03-01] MEDS: LIORESAL PO SCH ×3 (10:22→17:56)
[2018-03-01] MEDS ORDERED: FLU VACCINE IM ONE (17:37)
--- NOTE | 2018-03-01 22:55 | CONSULTATION ---
DATE OF CONSULTATION: 03/01/2018 HISTORY OF PRESENT ILLNESS: Mr. Milton Matias is a 57-year-old male who presented to the emergency department back on 02/23/2017 for altered mental status. It sounds like he and his had smoked some marijuana that had been laced with something, and they came in completely altered. His apparently has been shipped to [facility] for possible brain issues. Then he was starting to complain about his hip. We ended up doing a hip CT. He had a previous fracture that was fixed back [place] [address] Prado, and it looked like the helical blade started coming through the femoral head. Orthopedics was consulted. PAST MEDICAL HISTORY: Hypertension, seizures, anxiety and depression, and reflux. PAST SURGICAL HISTORY: Cholecystectomy, spine surgery, hernia repair. SOCIAL HISTORY: He has been a smoker for a long time, but apparently has quit about 6 months ago. He does occasional drugs. ALLERGIES: Aspirin and prednisone. HOME MEDICATIONS: Per the medical record. REVIEW OF SYSTEMS: Positive for this left hip pain. PHYSICAL EXAMINATION: General: A well-developed, well-nourished male. He is sitting in a bedside chair, in no acute distress. Head and Neck: Normocephalic, atraumatic. Respirations: Nonlabored breathing. Cardiovascular: Regular rate. Abdomen: Nondistended. Left Lower Extremity: He has healed incisions down the thigh. He has some tenderness to palpation when I ranged his hip a little bit. He has 2+ DP pulse. He has good sensation to light touch to the toes. He has good dorsiflexion and plantar flexion of the foot. IMAGING: CT scan: Left hip shows what looks like the intertrochanteric fracture that is well- healed, but has shortened. There is a little bit of head collapse, and the helical blade is sticking through into the acetabulum. It is probably just a few millimeters. ASSESSMENT: Left hardware-related pain, hip. PLAN: I discussed with Mr. Milton Matias about his hip. I am going to talk with Dr. Prado as well and discuss all options. We may end up just taking out his femoral helical blade, and exchanging it for a small one. He does already have a little bit of collapse of the head there, which is worrisome for continued long-term pain, so I will talk with Dr. Prado and we will formulate a plan and will discuss with him. He will be n.p.o. after midnight tonight just in case we want to do surgery tomorrow. He is touchdown weightbearing, left lower extremity. cc: Washington Mendiola MD
[2018-03-02] MEDS: MORPHINE IV PRN ×3 (03:03→17:03)
[2018-03-02 06:04] LABS: BASO# 0.01 X1000 (0.0-0.2); BASO% 0.1 % (0.0-0.8); EOS# 0.01 X1000 (0.0-0.7); EOS% 0.1 % (0.0-10.0); HEMATOCRIT 40.5 % (42.0-52.0); HEMOGLOBIN 13.4 g/dL (14.0-18.0); IMM GRAN# 0.04 X1000 (0.0-0.04); IMM GRAN% 0.3 % (0.0-0.5); LYMPH# 1.85 X1000 (1.2-3.4); LYMPH% 15.2 % (20.5-51.1); MCHC 33.1 g/dL (33-37); MCV 93.8 FL (81-99); MONO# 1.14 X1000 (0.11-0.59); MONO% 9.4 % (1.7-9.3); MPV 11.8 FL (7.4-10.4); NEUT# 9.14 X1000 (1.4-6.5); NEUT% 74.9 % (42.2-75.2); PLT 235 X1000 (130-400); RBC 4.32 XMIL (4.7-6.1); WBC 12.19 X1000 (4.8-10.8)
[2018-03-02 06:25] LABS: AGAP 14; BUN 6 mg/dL (8-22); CALCIUM 9.3 mg/dL (8.8-10.2); CHLORIDE 102 mmol/L (98-107); COSMO 279; CREATININE 0.5 mg/dL (0.7-1.2); ESTIMATED GFR > 60; GLUCOSE 92 mg/dL (70-104); MAGNESIUM 1.5 mg/dL (1.5-2.7); POTASSIUM 3.4 mmol/L (3.5-5.1); SODIUM 141 mmol/L (136-145); TCO2 25 mmol/L (25-35)
--- NOTE | 2018-03-02 07:55 | PROGRESS NOTE ---
DATE: 03/02/2018 SUBJECTIVE: Mr. Rose is sitting in his bedside chair today, still getting some pain in the left hip. OBJECTIVE: Left lower extremity exam: He still has neurovascularly intact left lower extremity. He still has tenderness to palpation to the left hip. ASSESSMENT: Left hardware-related pain at the hip. PLAN: We are going to plan on exchanging his helical blade today. In the OR, he is n.p.o. I discussed with him the ins and outs of surgery yesterday. I asked him again this morning. He did not have any questions for today. We will plan surgery some time around early afternoon. cc: Washington Mendiola MD
--- NOTE | 2018-03-02 09:58 | PROVIDER DOCUMENTATION ---
This chart was entered by Roxann Gallardo Scribe, acting as scribe for Chip Krishnan MD. HPI-Neurological Disorder - General Chief Complaint: Seizure Stated Complaint: seizure Time Seen by Provider: 02/23/18 10:50 Source: patient, EMS Unable to obtain history due to:: altered Allergies/Adverse Reactions: Patient Allergies Allergy/AdvReac Type Severity Reaction Status Date / Time aspirin Allergy Mild SWELLING Verified 02/23/18 10:46 prednisone Allergy Unknown Unknown Verified 02/23/18 10:46 Home Medications: Home Medication List Medication Instructions Recorded Confirmed Last Taken Type Bisoprolol [Zebeta] 5 mg PO DAILY #30 tablet 04/29/16 Unknown Rx LISINOpril [Prinivil] 20 mg PO DAILY #30 tablet 04/29/16 Unknown Rx Levetiracetam [Keppra] 1,000 mg PO BID #60 tablet 04/29/16 Unknown Rx Lisinopril/Hydrochlorothiazide 1 each PO DAILY #30 tablet 05/18/16 Unknown Rx [Zestoretic 20-12.5 Tablet] Amlodipine [Norvasc] 2.5 mg PO DAILY #30 tab 05/11/17 Unknown Rx Levetiracetam [Keppra] 1,000 mg PO BID #60 tab 05/11/17 Unknown Rx Lisinopril/Hydrochlorothiazide 1 ea PO DAILY #30 tab 05/11/17 Unknown Rx [Lisinopril-Hctz 20-12.5 mg Tab] Methocarbamol [Robaxin-750] 750 mg PO TID PRN #90 tab 05/11/17 Unknown Rx Pregabalin [Lyrica] 150 mg PO BID #60 cap 05/11/17 Unknown Rx Amlodipine Besylate [Norvasc] 10 mg PO DAILY #30 tab 11/19/17 Unknown Rx Bisoprolol [Zebeta] 5 mg PO BID #60 tab 11/19/17 Unknown Rx Lisinopril/Hydrochlorothiazide 1 ea PO DAILY #30 tab 11/19/17 Unknown Rx [Lisinopril-Hctz 20-25 mg Tab] Acetaminophen/Diphenhydramine 1 ea PO Q6-8H PRN PRN #20 tab 01/12/18 Unknown Rx [Percogesic 325-12.5 mg Tablet] Famotidine [Pepcid] 20 mg PO DAILY #20 tab 01/12/18 Unknown Rx Hyoscyamine Subl [Levsin-Sl] 0.125 mg SL TID #10 tab 01/12/18 Unknown Rx - History of Present Illness-Neuro Nature of Presenting Problem: 57 yowm presents to the ed via ems with possible seizure. pt has not been compliant with medications and called 911 this morning when pt was unresponsive. per ems pt was given a sternal rub and woke up and has been saying "oh shit" over and over Severity: reports: moderate Onset/Duration: reports: this morning Timing: reports: still present Context: reports: found unresponsive by family (), seizure activity Character of Altered Mental Status: reports: confused, agitated, seizure activity Any recent trauma/injury?: reports: none New weakness or altered sensation location:: reports: none Cognitive Baseline: alert, oriented x3 Gait Baseline: uses a walker Associated Symptoms: reports: confusion, seizures, sleepy. denies: headache, dizziness Similar Symptoms Previously?: Yes Recently seen or treated by another doctor?: No - Seizure First time to have a seizure?: No Witnessed seizure?: Yes () How many seizure episodes?: 1 Episode details: reports: unknown duration Episode Frequency: occasional episodes Status Epilepticus: No Preceding symptoms/context:: active Character of Seizure: reports: generalized shaking all over Post-ictal Symptoms: reports: confusion Seizure related injury: none Review of Systems - Adult - REVIEW OF SYSTEMS - ADULT Constitutional: denies: chills, fever Eyes: reports: no symptoms reported Ears, Nose, Mouth & Throat: reports: no symptoms reported Cardiovascular: denies: chest pain, palpitations Respiratory: denies: cough, shortness of breath, wheezing Gastrointestinal: denies: abdominal pain, diarrhea, nausea, vomiting Genitourinary: reports: no symptoms reported Musculoskeletal: denies: back pain, neck pain Integumentary: reports: no symptoms reported Neurological: reports: seizure. denies: see HPI, dizziness/vertigo, headache/ migraines, slurred speech Psychiatric: reports: no symptoms reported Endocrine: reports: no symptoms reported Hematologic/Lymphatic: reports: no symptoms reported Allergic/Immunologic: reports: no symptoms reported All Other Systems: Reviewed and Negative Past History - Adult - PAST MEDICAL HISTORY-ADULT Review of Records: reports: Old Records Reviewed, Nursing Assessment Review, Medications Reviewed, Social history reviewed & non-contributory. Major Childhood Illnesses: reports: denies history Cardiovascular: reports: HTN Respiratory: reports: denies history Gastrointestinal: reports: GERD Genitourinary: reports: denies history Musculoskeletal: reports: chronic pain Neurological: reports: Seizures/Epilepsy Psychiatric: reports: anxiety, depression Endocrine/Immune: reports: denies history Other Conditions: reports: denies history - PRIOR SURGERIES/PROCEDURES Surgical/Procedure History: reports: cholecystectomy, hernia repair, back/neck, other (hernia, testicular torsion) - IMMUNIZATION STATUS Childhood Immunizations: See Nurse Assessment Flu Vaccine: See Nurse Assessment - FAMILY HISTORY Family History: reviewed, not pertinent - SOCIAL HISTORY Smoking: denies Substance Use: denies Living Situation: family Physical Exam- Neurological - Physical Exam-Neuro Initial Vital Signs Reviewed: Yes General Appearance: mild distress, obese Eye Exam: bilateral eye: PERRL HENMT: TMs normal. 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 Exam: normal hearing, PERRL Integumentary: warm/dry, pallor Psych/Mental Status: disoriented x 3, anxious, disheveled - Glascow Coma Scale Best Eye Response: (3) open to voice Best Verbal Response: (4) confused conversation Best Motor Response: (5) localizes to pain Total Glascow Score: 12 Progress - PLAN OF CARE/RESULTS Progress/Plan/Lab Results: Vital Signs - 8 hr 02/23/18 10:47 Temperature 96 F L Pulse Rate 79 Respiratory Rate 28 H O2 Sat by Pulse Oximetry 97 Laboratory Results - last 24 hr 02/23/18 02/23/18 02/23/18 11:18 11:18 11:30 WBC 15.83 H RBC 4.29 L Hgb 13.3 L Hct 40.6 L MCV 94.6 MCH 31.0 MCHC 32.8 L RDW Std Deviation 15.0 H Plt Count 256 MPV 11.6 H Immature Gran % (Auto) 0.2 Neut % (Auto) 85.4 H Lymph % (Auto) 7.5 L [place] % (Auto) 6.9 Eos % (Auto) 0.0 Baso % (Auto) 0.0 Immature Gran # (Auto) 0.03 Neut # (Auto) 13.51 H Lymph # (Auto) 1.19 L [place] # (Auto) 1.10 H Eos # (Auto) 0.00 Baso # (Auto) 0.00 Sodium 138 Potassium 4.1 Chloride 101 Carbon Dioxide 19 L Anion Gap 18 BUN 13 Creatinine 2.2 H Estimated GFR/1.73 m2 31 BUN/Creatinine Ratio 6 Glucose 100 POC Glucose 88 Calculated Osmolality 276 Calcium 9.9 Total Bilirubin 0.70 AST 15 ALT 12 Alkaline Phosphatase 111 Total Protein 6.6 Albumin 3.4 L Globulin 3.0 Albumin/Globulin Ratio 1.0 Urine Source Urine Color Urine Clarity Urine pH Ur Specific [place] Urine Protein Urine Ketones Urine Blood Urine Nitrite Urine Bilirubin Urine Urobilinogen Urine Microscopic RBC Urine WBC Urine Microscopic WBC Ur Epithelial Cells Urine Bacteria Urine Glucose Urine Opiates Screen Ur Oxycodone Screen Urine Methadone Screen U Propoxyphene Qual Ur Barbituates Screen Ur Tricyclics Screen Ur Phencyclidine Scrn Ur Amphetamines Screen U Methamphetamines Scrn U Benzodiazepines Scrn Urine Cocaine Screen U Cannabinoids Screen 02/23/18 02/23/18 11:35 11:35 WBC RBC Hgb Hct MCV MCH MCHC RDW Std Deviation Plt Count MPV Immature Gran % (Auto) Neut % (Auto) Lymph % (Auto) [place] % (Auto) Eos % (Auto) Baso % (Auto) Immature Gran # (Auto) Neut # (Auto) Lymph # (Auto) [place] # (Auto) Eos # (Auto) Baso # (Auto) Sodium Potassium Chloride Carbon Dioxide Anion Gap BUN Creatinine Estimated GFR/1.73 m2 BUN/Creatinine Ratio Glucose POC Glucose Calculated Osmolality Calcium Total Bilirubin AST ALT Alkaline Phosphatase Total Protein Albumin Globulin Albumin/Globulin Ratio Urine Source CATH Urine Color YELLOW Urine Clarity CLEAR Urine pH 5.0 Ur Specific [place] 1.025 Urine Protein 1+(30 mg/dL) A Urine Ketones TRACE Urine Blood TRACE Urine Nitrite POSITIVE A Urine Bilirubin NEGATIVE Urine Urobilinogen NORMAL Urine Microscopic RBC <10 Urine WBC TRACE A Urine Microscopic WBC 10-20 A Ur Epithelial Cells <10 Urine Bacteria 2+ Urine Glucose NEGATIVE Urine Opiates Screen NONE DETECTED Ur Oxycodone Screen NONE DETECTED Urine Methadone Screen NONE DETECTED U Propoxyphene Qual NONE DETECTED Ur Barbituates Screen NONE DETECTED Ur Tricyclics Screen NONE DETECTED Ur Phencyclidine Scrn NONE DETECTED Ur Amphetamines Screen NONE DETECTED U Methamphetamines Scrn NONE DETECTED U Benzodiazepines Scrn NONE DETECTED Urine Cocaine Screen NONE DETECTED U Cannabinoids Screen PRESUMPTIVE POSITIVE A Orders Category Date Time Status CBC WITH ELECTRONIC DIFF [HEME] Stat Lab 02/23/18 11:18 Completed COMPREHENSIVE METABOLIC PANEL [CHEM] Stat Lab 02/23/18 11:18 Completed KEPPRA [GIL] Stat Lab 02/23/18 11:18 Received URINE CULTURE [RM] Routine Lab 02/23/18 12:48 Ordered URINE DRUG SCREEN PL Stat Lab 02/23/18 11:35 Completed ua [URINALYSIS PL W/POSS RFLX CULT] [URINALYSIS] Stat Lab 02/23/18 11:35 Completed 0.9% Sodium Chloride Inj [Ns] 1,000 ml Med 02/23/18 11:19 Discontinued .ROUTE As Directed 0.9% Sodium Chloride Inj [Ns] 1,000 ml Med 02/23/18 11:52 Discontinued IV As Directed Diphenhydramine [Benadryl] Med 02/23/18 13:10 Discontinued 50 mg .ROUTE .STK-MED ONE Diphenhydramine [Benadryl] Med 02/23/18 13:21 Discontinued 50 mg IM NOW ONE Lorazepam [Ativan] Med 02/23/18 15:07 Discontinued 1 mg IM NOW ONE Lorazepam [Ativan] Med 02/23/18 15:39 Discontinued 1 mg IM NOW ONE Lorazepam [Ativan] Med 02/23/18 14:53 Discontinued 1 mg IV NOW ONE Lorazepam [Ativan] Med 02/23/18 14:56 Discontinued 2 mg .ROUTE .STK-MED ONE EKG [EKG] Stat Ther 02/23/18 11:18 Draft NO TPA due to seizure not CVA Result Diagrams: 02/23/18 11:18 02/23/18 11:18 - REASSESSMENT Reassessment #1 Time Reassessed: 11:14 (dr ohara and dr krishnan at bedside) Status: improving Reassessment #2 Time Reassessed: 11:29 (pt is angry and awake) Status: unchanged Reassessment Comment: daughter at bedside Reassessment #3 Time Reassessed: 13:09 (pt has extrated movement of BUE and BLE and is clapping hands. pt looks to be wild eyed and is not speaking when spoken to. pt is still confused) Status: unchanged Reassessment Comment: dr krishnan at bedside Reassessment #4 Time Reassessed: 14:57 (dr krishnan at bedside and has ativan ordered to help pt relax) Status: unchanged - EKG 1 Time of EKG reading by physician:: 11:17 EKG Read and Signed by:: Chip Krishnan EKG Interpretation (*Must complete 3 of following elements*): Normal Rate: 59 Rhythm: sinus tachycardia [place]: normal QRS: normal MI Interval: normal ST Wave: normal - CONSULTS/PCP/HOSPITALIST Notification #1 *Consult/PCP/Hospitalist*: hospitalist dr ohara Time Discussed: 11:14 Reason/Comments: at bedside and will admit when everything is back Consult Disposition: Admit #2 Consult: hospitalist Time Discussed: 15:54 (speaking with dr ohara) Reason/Comments: all labs are back Departure - Departure Date of Disposition Decision: 02/23/18 Time of Disposition Decision: 16:17 DIAGNOSIS: Seizure, Tetrahydrocannabinol (THC) use disorder, mild, abuse Disposition: ADMITTED INPATIENT 09 Certified Medical Emergency: Emergent Condition: Stable Referrals and Follow-Ups: None,PCP [Primary Care Provider] - - Critical Care Note This patient required my direct & personal management of CC.: Yes Total Time (mins): 49 Critical Care Statement: This patient required my direct personal management to treat or rule out processes, the absence of which, could potentiallly result in sudden, clinically significant life or limb threatening deterioration. Attestation - Physician/ KAYLA Attestation Patient care was provided by Advanced Practice Provider:: No The physician spent face to face time with patient:: Yes Advanced Practice Provider documentation review:: Supervising physician onsite and consulted in the evaluation and care of this patient. The physician did have a face to face encounter with the patient. This chart was documented by the indicated scribe, (Roxann Gallardo Scribe) and accurately reflects the services I performed and decisions made by me, Chip Krishnan MD, as attested by the provider's signature.
[2018-03-02] MEDS: ATIVAN IV PRN (10:36)
[2018-03-02] MEDS: PEPCID PO SCH (12:25)
[2018-03-02] MEDS: LIORESAL PO SCH ×3 (12:25→18:27)
[2018-03-02] MEDS: KEPPRA PO SCH ×3 (12:25→21:28)
[2018-03-02] MEDS: ZEBETA PO SCH ×2 (12:26→17:04)
[2018-03-02] MEDS ORDERED: KEFZOL 2 GM/D5W 2 GM/50 ML IVPB ONE (14:06)
[2018-03-02] MEDS ORDERED: DIPRIVAN 1% ONE (14:41)
[2018-03-02] MEDS ORDERED: XYLOCAINE-MPF 2% ONE (14:41)
[2018-03-02] MEDS ORDERED: SUFENTA ONE (14:43)
[2018-03-02] MEDS ORDERED: QUELICIN (DOSE) ONE (14:45)
[2018-03-02] MEDS ORDERED: ZOFRAN ONE (15:25)
--- NOTE | 2018-03-02 20:43 | OPERATIVE NOTE ---
PROCEDURE DATE: 03/02/2018 PREOPERATIVE DIAGNOSIS: Left hardware prominence the hip from a trochanteric femoral nail helical blade. POSTOP DIAGNOSIS: Left hardware prominence the hip from a trochanteric femoral nail helical blade. PROCEDURE: Left trochanteric femoral nail helical blade exchange. SURGEON: Dr. Washington Mendiola. CONCRETE BATCHER: Steve Boyd RN. ANESTHESIA: General with LMA. ESTIMATED BLOOD LOSS: 50 mL. IMPLANTS: Size 90 mm helical blade, explanted size 110 helical blade. DISPOSITION: To PACU, hemodynamically stable. INDICATION FOR PROCEDURE: Mr. Rose 57-year-old male who I was consulted on yesterday for prominence of the helical blade in the left hip joint seen on CT scan. I discussed with him about surgical intervention. He expressed understanding wished to proceed. DESCRIPTION OF THE PROCEDURE: Mr. Rose was identified preoperative holding area. The left hip was marked as correct surgical site. He was then wheeled to the operating room, kept supine on his own bed. He was induced under general anesthesia. LMA was placed. He was then moved to the traction bed. He was placed in the traction boots and attached to the bed, no traction was applied though to either hip. Left lower extremity was then prepped gluconate scrub and then ChloraPrep and draped in normal fashion, surgical pause was performed. We identified the correct patient, correct side, and the correct procedure. Preop antibiotics were given. We started with an incision through his previous incision just proximal to the greater trochanter. Dissection was carried down to the top of the nail, I used my knife and was able to get down right onto the nail then used a hemostat and cleaned off some of the tissue right around the top of the nail. I then took the [employer] screwdriver and was able to back up the setscrew. I then made an incision on the thigh and was able to get a guidewire up the helical blade. I was then able to thread the extractor onto the helical blade and used a mallet and malleted it out of the hip. I then put the guidewire back in. We then sized the other one to a 110 mm so ended up putting a 90 mm helical blade back in, put it right over the same guidewire in the same hole and once we got it in position I then used the [employer] team truck driver engaged the [employer] and locked everything back into place. We then removed all the outrigger guide, was able to get some final films which showed helical blade looked to be in appropriate position both AP and lateral views and it was a good ways away from the articular surface. I then closed the incision with 0 Vicryl for the deep layer, 2-0 Vicryl for the subcutaneous and aileen on the skin. Adaptic, 4 x 4s and island dressing was applied. He was then wheeled from general anesthesia moved his own bed and taken to PACU in stable condition. Postoperatively, he will be weight bear as tolerated left lower extremity. cc: Washington Mendiola MD
[2018-03-02] MEDS ORDERED: KLOR-CON PO ONE (21:00)
[2018-03-02] MEDS: KEFZOL 1 GM/D5W 1 GM/50 ML IVPB IV SCH (21:28)
[2018-03-02] MEDS: OXY IR PO PRN (21:29)
[2018-03-02] MEDS: PERIDEX MT SCH (21:29)
[2018-03-03] MEDS: MORPHINE IV PRN ×4 (00:49→21:21)
[2018-03-03] MEDS: KEFZOL 1 GM/D5W 1 GM/50 ML IVPB IV SCH ×2 (05:35→13:31)
[2018-03-03 06:19] LABS: BASO# 0.01 X1000 (0.0-0.2); BASO% 0.1 % (0.0-0.8); HEMOGLOBIN 12.8 g/dL (14.0-18.0); IMM GRAN# 0.05 X1000 (0.0-0.04); IMM GRAN% 0.4 % (0.0-0.5); LYMPH# 2.12 X1000 (1.2-3.4); LYMPH% 18.1 % (20.5-51.1); MCH 31.2 PG (27-31); MCHC 32.8 g/dL (33-37); MCV 95.1 FL (81-99); MONO# 1.35 X1000 (0.11-0.59); MONO% 11.5 % (1.7-9.3); MPV 11.7 FL (7.4-10.4); NEUT# 8.16 X1000 (1.4-6.5); NEUT% 69.9 % (42.2-75.2); PLT 265 X1000 (130-400); RDW 15.1 % (11.5-14.5); WBC 11.69 X1000 (4.8-10.8)
[2018-03-03 06:55] LABS: AGAP 11; ALB/GLOB RATIO 1.1; ALBUMIN 3.2 g/dL (3.5-5.0); ALKALINE PHOSPHATASE 82 U/L (32-122); BUN 6 mg/dL (8-22); CALCIUM 9.4 mg/dL (8.8-10.2); CHLORIDE 102 mmol/L (98-107); COSMO 279; CREATININE 0.5 mg/dL (0.7-1.2); ESTIMATED GFR > 60; GLUCOSE 107 mg/dL (70-104); GOT 30 U/L (10-34); GPT 33 U/L (10-44); POTASSIUM 3.6 mmol/L (3.5-5.1); SODIUM 141 mmol/L (136-145); TCO2 28 mmol/L (25-35); TOTAL BILIRUBIN 1.11 mg/dL (0.20-1.00)
[2018-03-03] MEDS: ZEBETA PO SCH (09:30)
[2018-03-03] MEDS: LIORESAL PO SCH ×2 (09:32→13:32)
[2018-03-03] MEDS: PEPCID PO SCH (09:32)
[2018-03-03] MEDS: KEPPRA PO SCH ×2 (09:32→21:21)
[2018-03-03] MEDS: PERIDEX MT SCH ×2 (09:32→21:21)
--- NOTE | 2018-03-03 10:34 | PROGRESS NOTE ---
DATE: 03/02/2018 SUBJECTIVE: This progress note is from my evaluation yesterday. For some reason, it has been dictated but for some reason is not in the computer yet. Patient just had a procedure done. A left trochanteric femoral nail helical blade change. He is sleepy, but arousable. He is able to say his name, but he is falling right back to sleep. He tolerated well the procedure. PHYSICAL EXAMINATION: Vital Signs: Temperature 97.6, pulse 81, respiratory rate 16, blood pressure 156/97, oxygen saturation 97% on room air. HEENT: Head normocephalic, no trauma. PERRLA. Neck: Supple. No JVD. No masses. Central trachea. Chest: Clear to auscultation. No wheezing. No rales. Abdomen: Soft, nontender, nondistended. No hepatosplenomegaly. Extremities: Left hip wound covered with a dressing that looks clean. Neurological: The patient is sleepy, but arousable. He is able to say his name and move all 4 extremities spontaneously. LABORATORY: WBC 12.1, hemoglobin 13.4, hematocrit 40.5, platelets 235. Sodium 141, potassium 3.4, chloride 102, bicarbonate 25, BUN 6, creatinine 0.5, glucose 92, calcium 9.3, magnesium 1.5. ASSESSMENT AND PLAN: 1. Altered mental status changes due to likely drug overdose, resolved. As per the patient, he was using just marijuana. Also, he has been suspected to have some spice inside, but clinically this patient is much better. 2. Acute kidney injury. Resolved. 3. Urinary tract infection. He already received treatment with antibiotics. 4. Seizure disorder. The patient is on Keppra. No report of seizure during this hospitalization. 5. Hyponatremia. Stable, resolved. 6. Hypokalemia. I will replace. 7. Left hip pain. This patient just had a procedure done, a left trochanteric femoral nail helical blade change. He tolerated well the procedure. We will continue to monitor. cc: Sanjay Garcia MD
--- NOTE | 2018-03-03 10:52 | PROGRESS NOTE ---
DATE: 03/03/2018 SUBJECTIVE: At this moment, this patient is sitting on a chair, completely alert and oriented x3. As per the patient, upon admission he was just using marijuana. At this moment, he is complaining of left hip pain. He is status post left trochanteric femoral nail, helical blade exchange. Postoperative day 1, he seems to be stable. OBJECTIVE: Vital Signs: Temperature 98.5 degrees, pulse 94, respiratory rate 16, blood pressure 164/91, oxygen saturation 98 on room air. HEENT: Head normocephalic. No trauma. PERRLA. Neck: Supple. No JVD. No masses. Central trachea. Chest: Clear to auscultation. No wheezing. No rales. Abdomen: Soft, nontender, nondistended. No hepatosplenomegaly. Extremities: Left hip wound looks clean, dry, and intact and covered with a dressing. Neurological examination: The patient is alert and oriented x3. No focal deficits. LABORATORY: WBC 11.6, hemoglobin 12.8, hematocrit 39, platelets 265. Sodium 141, potassium 3.6, chloride 102, bicarbonate 28. BUN 6, creatinine 0.5, glucose 107, calcium 9.4, albumin 3.2. ASSESSMENT AND PLAN: 1. Altered mental status secondary to drug overdose. As per the patient, he was using only marijuana and this is not new. Also, he has been taking baclofen at home, but he was not using spice or any other drugs. His mental status is much better, resolved. 2. Acute kidney injury, resolved. 3. Urinary tract infection, already treated. 4. Seizure disorder. Continue with home medication. 5. Hyponatremia, resolved. 6. Hypertension. I will put this patient on hydralazine three times a day due to his blood pressure, but he will bring his blood pressure medications at home. He does not remember the name. 7. Hypokalemia, resolved. 8. Hyponatremia, resolved. 9. Severe left hip pain. CT of the hip showed changes consistent with joint space material. The bell which keeps stable the old fracture extends through the superior margin of the femoral head into the hip joint space. Status post left trochanteric femoral nail helical blade exchange. This patient tolerated well the procedure. We are trying to keep the pain controlled. cc: Sanjay Garcia MD
--- NOTE | 2018-03-03 13:19 | PROGRESS NOTE ---
DATE: 03/03/2018 SUBJECTIVE: Darwin Rose is a 57-year-old male who Dr. Mendiola did a helical blade exchange yesterday of his left hip. He states he is much improved. He is able to get up and walk, and wishes to have his Cota discontinued. OBJECTIVE: He is a well-developed, well-nourished male. He is alert, oriented, and cooperative exam. His leg is neurovascularly intact. His white count is 11.7. His hematocrit is 39%. ASSESSMENT: Stable left trochanteric fixation nail with helical blade exchange. PLAN: We will remove his Cota. He can possibly go home tomorrow versus Monday. cc: Shane Healy MD
[2018-03-03] MEDS: APRESOLINE PO SCH ×2 (13:31→21:22)
[2018-03-03] MEDS: FLEXERIL PO SCH ×2 (15:15→21:22)
[2018-03-03] MEDS: OXY IR PO PRN (23:34)
[2018-03-04] MEDS: MORPHINE IV PRN (03:49)
[2018-03-04] MEDS: FLEXERIL PO SCH (06:03)
[2018-03-04] MEDS: APRESOLINE PO SCH (06:03)
[2018-03-04 08:03] VITALS: BP 144/97
[2018-03-04] MEDS: PEPCID PO SCH (08:08)
[2018-03-04] MEDS: ZEBETA PO SCH (08:08)
[2018-03-04] MEDS: KEPPRA PO SCH (08:08)
[2018-03-04] MEDS: PERIDEX MT SCH (08:09)
--- NOTE | 2018-03-04 10:33 | PROGRESS NOTE ---
DATE: 03/04/2018 SUBJECTIVE: Darwin Rose is a 57-year-old male who is postoperative day 2 from a left helical blade exchange. He has no complaints. He is up ambulating. OBJECTIVE: General: He is a well-developed, well-nourished male. He is alert, oriented, and cooperative exam. Musculoskeletal: He is ambulating well with his walker. His wound is clean, dry, and intact. ASSESSMENT: Stable left hip after helical blade exchange. PLAN: He can be discharged home. He will need to follow up with Dr. Mendiola in about 10 days for staple removal. cc: Shane Healy MD
--- NOTE | 2018-03-04 21:56 | DISCHARGE SUMMARY ---
ADMISSION DATE: 02/23/2018 DISCHARGE DATE: 03/04/2018 DISCHARGE DIAGNOSIS: 1. Altered mental status secondary to drug overdose. 2. Acute kidney injury resolved. 3. Urinary tract infection, treated. 4. Seizure disorder. 5. Hyponatremia resolved. 6. Hypertension. 7. Hypokalemia resolved. 8. Hyponatremia resolved. 9. Severe left hip pain status post left trochanteric femoral nail helical blade exchange. 10. Drug abuse, especially marijuana. HOSPITAL COURSE: 57-year-old male admitted on 02/23/2018 presented to [facility] ER via EMS after he was found unresponsive by his the morning of admission. Apparently he was smoking marijuana before the episode of confusion and unresponsiveness. He was lethargic, confused, then he became agitated flailing his arms in the bed at times, in the emergency department he was found to have a WBC of 15.8, creatinine was 2.2. Urinalysis showed positive nitrates, white blood cells and bacteria. His urine drug toxicology showed possible cannabinoids, he was admitted to the ICU. He was placed on physical restraints to avoid problem and/or damage to his body because she was severely agitated, IV fluids, antibiotics, he has a history of seizure disorder. Will continue with Keppra, Lorazepam and Haldol as needed, sometimes he received some doses of Geodon for acute agitation as well. We believe that probably he used spice but we do not have any way to corroborate this information since this is not going to show up in the urine. He spent a few days in intensive care unit agitated and confused. Around the day #4 he was feeling a little bit better but he started complaining of left lower extremity pain at the level of the hip, all the electrolytes were corrected during the course of his hospitalization, because of the severe pain we asked for a CT scan to evaluate that hip that showed a post traumatic/postsurgical deformity of proximal left femur from old intertrochanteric fracture with surgical fixation, the bell which fixates the old fracture extends through the superior margin of the femoral head into the hip joint space by approximately 4.5 mm so this patient was transferred to [facility] and orthopedic surgery evaluated this patient. Since this patient has a left hardware prominence to the hip from the trochanteric femoral nail helical blade they did a left trochanteric femoral nail helical blade exchange . The patient tolerated well the procedure, the next day we removed the Cota catheter, he was tolerating p.o. and ambulating with pain but he was feeling fine, today this patient is feeling much better. He is tolerating p.o. as well. Vital signs are stable so I will discharge this patient home with a strict followup by primary care doctor and also follow up with Dr. Mendiola on 03/16/2018. Vital Signs: Temperature 98.2 degrees, pulse 86, respiratory rate 18, blood pressure 144/97, oxygen saturation 99 on room air. HEENT: Head normocephalic. No trauma. PERRLA. Neck: Supple. No JVD. No masses. Central trachea. Chest: Clear to auscultation. No wheezing. No rales. Abdomen: Soft, nontender, nondistended. No hepatosplenomegaly. Extremities: Left hip pain and small wound of around 4 to 5 cm in length with some aileen, no signs of bleeding or infection. Neurological: The patient is alert and oriented x3. No focal deficits. LABORATORY: WBC 11.6, hemoglobin 12.8, hematocrit 39, platelets 265,000, sodium 141, potassium 3.6, chloride 102, bicarbonate 28, BUN 6, creatinine 0.5, glucose 107, calcium 9.4, albumin 3.2. DISCHARGE MEDICATIONS: Lyrica 150 mg p.o. daily, lisinopril/hydrochlorothiazide 20/12.5 mg tablet 1 tablet p.o. daily, famotidine 20 mg p.o. daily, bisoprolol 5 mg p.o. daily, amlodipine 10 mg p.o. daily, Keppra 1000 mg p.o. b.i.d., oxycodone IR 5 mg p.o. q.3 hours p.r.n. pain and Flexeril 5 mg p.o. q.8 hours. TIME SPENT: 35 minutes. cc: Sanjay Garcia MD
== END 2018-03-04 11:40 | disposition home health service (06) | DRG 908 ==
LOC: P.ED 10:44 → P.ICU 17:27 → SUATTDRO 17:27 → 4N 03-01 14:14
PROVIDERS: ATTEND Internal Medicine
CPT/HCPCS: 36415; 71010; 71045; 73700; 76000; 80048; 80053; 80104; 80177; 80299; 80301; 80305; 81001; 82491; 82948; 83735; 85025; 87040; 87088; 93005; 94660; 94761; 94799; 96372; 97116; 97162; 97163; 97530; 99285; A9270; G0431; G0434; G0477; J0131; J0330; J0690; J0696; J1200; J1630; J1953; J2060; J2270; J2405; J3480; J3486; J7030; J7040; J7070; XXXXX

== ENCOUNTER 2018-04-01 06:19 | Inpatient (IN) ==
[2018-04-01] MEDS ORDERED: NS 1,000 ML ONE (06:32)
[2018-04-01] MEDS ORDERED: NS 1,000 ML IV ONE (06:32)
--- NOTE | 2018-04-01 06:38 | PROVIDER DOCUMENTATION ---
HPI-Neurological Disorder - General Chief Complaint: Seizure Stated Complaint: SEIZURE Time Seen by Provider: 04/01/18 06:29 Source: family Allergies/Adverse Reactions: Patient Allergies Allergy/AdvReac Type Severity Reaction Status Date / Time aspirin Allergy Mild SWELLING Verified 04/01/18 10:28 prednisone Allergy Unknown Unknown Verified 04/01/18 10:28 Home Medications: Home Medication List Medication Instructions Recorded Confirmed Last Taken Type Lisinopril/Hydrochlorothiazide 1 ea PO DAILY #30 tab 05/11/17 04/01/18 03/31/18 Rx [Lisinopril-Hctz 20-12.5 mg Tab] Amlodipine Besylate [Norvasc] 10 mg PO DAILY #30 tab 11/19/17 04/01/18 03/31/18 Rx Famotidine [Pepcid] 20 mg PO DAILY #20 tab 01/12/18 04/01/18 03/31/18 Rx Levetiracetam 1,000 mg PO BID 02/24/18 04/01/18 03/31/18 History Bisoprolol Fumarate 5 mg PO DAILY 02/27/18 04/01/18 03/31/18 History Pregabalin [Lyrica] 150 mg PO DAILY 02/27/18 04/01/18 03/31/18 History Cyclobenzaprine [Flexeril] 5 mg PO Q8HR #90 tab 03/04/18 04/01/18 03/31/18 Rx Oxycodone I.r. [Oxy Ir] 5 mg PO Q3H PRN PRN #20 tab 03/04/18 04/01/18 03/31/18 Rx - History of Present Illness-Neuro Nature of Presenting Problem: patient was brought by ambulance. His states she was awoken from sleep by her having a seizure. He had a seizure last month. he had a screw removed from his femur last month. he has been down and depressed since then. his sugar has been high. He has not been diagnosed with diabetes per his Headache Location: denies: frontal, temporal, occipital, parietal, global, other Severity: denies: mild, moderate, severe Onset/Duration: reports: abrupt, just prior to arrival Timing: reports: gone now Context: reports: seizure activity Character of Altered Mental Status: reports: confused Any recent trauma/injury?: reports: none Character of Deficits: denies: new weakness, altered sensation, vision problem/ glaucoma, impaired speech, impaired swallowing, decreased ability to stand, decreased ability to walk, falling Cognitive Baseline: alert but confused Gait Baseline: walks only with assistance Associated Symptoms: reports: denies symptoms Similar Symptoms Previously?: Yes Recently seen or treated by another doctor?: Yes - Seizure First time to have a seizure?: No Witnessed seizure?: Yes How many seizure episodes?: 1 Episode Frequency: rare episodes Status Epilepticus: No Preceding symptoms/context:: none Character of Seizure: reports: generalized shaking all over, incontinent of urine, stopped breathing Post-ictal Symptoms: reports: confusion Seizure related injury: none Review of Systems - Adult - REVIEW OF SYSTEMS - ADULT Constitutional: reports: no symptoms reported Eyes: reports: no symptoms reported Ears, Nose, Mouth & Throat: reports: no symptoms reported Cardiovascular: reports: no symptoms reported Respiratory: reports: no symptoms reported Gastrointestinal: reports: no symptoms reported Genitourinary: reports: incontinence Integumentary: reports: no symptoms reported Neurological: reports: see HPI Psychiatric: reports: depression Endocrine: reports: polyuria Hematologic/Lymphatic: reports: no symptoms reported Allergic/Immunologic: reports: no symptoms reported Past History - Adult - PAST MEDICAL HISTORY-ADULT Review of Records: reports: Old Records Reviewed, Nursing Assessment Review Major Childhood Illnesses: reports: denies history Cardiovascular: reports: HTN Respiratory: reports: denies history Gastrointestinal: reports: GERD Obstetrical/Gynecological: reports: denies history Genitourinary: reports: denies history Musculoskeletal: reports: chronic pain Neurological: reports: Seizures/Epilepsy Psychiatric: reports: anxiety, depression Endocrine/Immune: reports: denies history Other Conditions: reports: denies history - PRIOR SURGERIES/PROCEDURES Surgical/Procedure History: reports: cholecystectomy, hernia repair, back/neck, other (hernia, testicular torsion) - IMMUNIZATION STATUS Childhood Immunizations: See Nurse Assessment Flu Vaccine: See Nurse Assessment - FAMILY HISTORY Family History: reviewed, not pertinent Physical Exam- Neurological - Physical Exam-Neuro Exam Limited by: confused/depressed Initial Vital Signs Reviewed: Yes General Appearance: appears well Eye Exam: bilateral eye: normal inspection, PERRL, EOMI HENMT: normocephalic/atraumatic, moist mucous membranes, normal ENT inspection, TMs normal, pharynx normal Head Injury: no evidence of injury Neck: non-tender, full range of motion, supple Respiratory: chest non-tender, lungs clear Cardiovascular: regular rate, rhythm, no edema, no gallop, no JVD, no murmur Abdominal Exam: normal bowel sounds, non tender, soft, no organomegaly, no pulsatile mass Lymphatic: no adenopathy Extremity: normal range of motion, 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 Exam: normal hearing, normal speech Coordination/Gait: negative: normal finger to nose, normal gait Motor/Sensory: no motor deficit, no sensory deficit Neurologic: grossly normal, no motor/sensory deficits Integumentary: normal color, normal turgor, warm/dry Psych/Mental Status: depressed affect - Glascow Coma Scale Best Eye Response: (4) open spontaneously Best Verbal Response: (4) confused conversation Best Motor Response: (6) obeys commands Total Glascow Score: 14 Progress - PLAN OF CARE/RESULTS Progress/Plan/Lab Results: Vital Signs - 8 hr 04/01/18 10:21 Temperature 99.2 F Pulse Rate 101 H Respiratory Rate 21 Blood Pressure 157/107 O2 Sat by Pulse Oximetry 95 Laboratory Results - last 24 hr 04/01/18 04/01/18 04/01/18 06:26 06:45 06:45 WBC RBC Hgb Hct MCV MCH MCHC RDW Std Deviation Plt Count MPV Immature Gran % (Auto) Neut % (Auto) Lymph % (Auto) Garvin % (Auto) Eos % (Auto) Baso % (Auto) Immature Gran # (Auto) Neut # (Auto) Lymph # (Auto) Garvin # (Auto) Eos # (Auto) Baso # (Auto) Sodium 119 L* Potassium 4.1 Chloride 77 L Carbon Dioxide 20 L Anion Gap 22 BUN 12 Creatinine 0.8 Estimated GFR/1.73 m2 > 60 BUN/Creatinine Ratio 15 Glucose 227 H POC Glucose 208 H D Calculated Osmolality 247 Calcium 11.3 H Total Bilirubin 2.40 H AST 23 ALT 11 Alkaline Phosphatase 136 H Creatine Kinase 55 Troponin T Total Protein 7.6 Albumin 4.6 Globulin 3.0 Albumin/Globulin Ratio 2.0 Urine Source Urine Color Urine Clarity Urine pH Ur Specific Kirkman Urine Protein Urine Ketones Urine Blood Urine Nitrite Urine Bilirubin Urine Urobilinogen Urine Microscopic RBC Urine WBC Urine Microscopic WBC Ur Epithelial Cells Urine Glucose Urine Opiates Screen Ur Oxycodone Screen Urine Methadone Screen U Propoxyphene Qual Ur Barbituates Screen Ur Tricyclics Screen Ur Phencyclidine Scrn Ur Amphetamines Screen U Methamphetamines Scrn U Benzodiazepines Scrn Urine Cocaine Screen U Cannabinoids Screen 04/01/18 04/01/18 04/01/18 06:45 06:45 08:30 WBC 21.01 H RBC 4.94 Hgb 15.3 Hct 43.3 MCV 87.7 MCH 31.0 MCHC 35.3 RDW Std Deviation 13.7 Plt Count 377 MPV 11.7 H Immature Gran % (Auto) 0.4 Neut % (Auto) 75.4 H Lymph % (Auto) 14.3 L Garvin % (Auto) 9.9 H Eos % (Auto) 0.0 Baso % (Auto) 0.0 Immature Gran # (Auto) 0.08 H Neut # (Auto) 15.83 H Lymph # (Auto) 3.01 Garvin # (Auto) 2.08 H Eos # (Auto) 0.00 Baso # (Auto) 0.01 Sodium Potassium Chloride Carbon Dioxide Anion Gap BUN Creatinine Estimated GFR/1.73 m2 BUN/Creatinine Ratio Glucose POC Glucose Calculated Osmolality Calcium Total Bilirubin AST ALT Alkaline Phosphatase Creatine Kinase Troponin T < 0.010 Total Protein Albumin Globulin Albumin/Globulin Ratio Urine Source CLEAN CATCH Urine Color YELLOW Urine Clarity CLEAR Urine pH 6.5 Ur Specific Kirkman 1.020 Urine Protein NEGATIVE Urine Ketones TRACE Urine Blood 2+ A Urine Nitrite NEGATIVE Urine Bilirubin NEGATIVE Urine Urobilinogen NORMAL Urine Microscopic RBC 10-20 A Urine WBC TRACE A Urine Microscopic WBC 5-10 Ur Epithelial Cells <10 Urine Glucose NEGATIVE Urine Opiates Screen Ur Oxycodone Screen Urine Methadone Screen U Propoxyphene Qual Ur Barbituates Screen Ur Tricyclics Screen Ur Phencyclidine Scrn Ur Amphetamines Screen U Methamphetamines Scrn U Benzodiazepines Scrn Urine Cocaine Screen U Cannabinoids Screen 04/01/18 08:30 WBC RBC Hgb Hct MCV MCH MCHC RDW Std Deviation Plt Count MPV Immature Gran % (Auto) Neut % (Auto) Lymph % (Auto) Garvin % (Auto) Eos % (Auto) Baso % (Auto) Immature Gran # (Auto) Neut # (Auto) Lymph # (Auto) Garvin # (Auto) Eos # (Auto) Baso # (Auto) Sodium Potassium Chloride Carbon Dioxide Anion Gap BUN Creatinine Estimated GFR/1.73 m2 BUN/Creatinine Ratio Glucose POC Glucose Calculated Osmolality Calcium Total Bilirubin AST ALT Alkaline Phosphatase Creatine Kinase Troponin T Total Protein Albumin Globulin Albumin/Globulin Ratio Urine Source Urine Color Urine Clarity Urine pH Ur Specific Kirkman Urine Protein Urine Ketones Urine Blood Urine Nitrite Urine Bilirubin Urine Urobilinogen Urine Microscopic RBC Urine WBC Urine Microscopic WBC Ur Epithelial Cells Urine Glucose Urine Opiates Screen PRESUMPTIVE POSITIVE A Ur Oxycodone Screen NONE DETECTED Urine Methadone Screen NONE DETECTED U Propoxyphene Qual NONE DETECTED Ur Barbituates Screen NONE DETECTED Ur Tricyclics Screen NONE DETECTED Ur Phencyclidine Scrn NONE DETECTED Ur Amphetamines Screen NONE DETECTED U Methamphetamines Scrn NONE DETECTED U Benzodiazepines Scrn NONE DETECTED Urine Cocaine Screen NONE DETECTED U Cannabinoids Screen PRESUMPTIVE POSITIVE A Orders Category Date Time Status Admit - [facility] Routine AdmDCTranf 04/01/18 08:21 Active Admit - [facility] Routine AdmDCTranf 04/01/18 10:10 Active Neurological Check Q2H Care 04/01/18 08:21 Active Vital Signs Order Q 8-HR ASSESS Care 04/01/18 08:23 Active Z-Document. for Tele Applied ORDERED Care 04/01/18 08:22 Active CHEST-PORTABLE [RAD] Stat Exams 04/01/18 06:[address] HEAD W/O CONTRAST [CT] Stat Exams 04/01/18 06:30 Completed CBC WITH ELECTRONIC DIFF [HEME] Stat Lab 04/01/18 06:45 Completed CK PROFILE [SP CHEM] Stat Lab 04/01/18 06:45 Completed COMPREHENSIVE METABOLIC PANEL [CHEM] Stat Lab 04/01/18 06:45 Completed TROPONIN T Stat Lab 04/01/18 06:[address] W/POSS RFLX CULT [URINALYSIS] Stat Lab 04/01/18 08:30 Com[address] DRUG SCREEN [address] Stat Lab 04/01/18 08:30 Completed 0.9% Sodium Chloride Inj [Ns] 1,000 ml Med 04/01/18 06:32 Discontinued .ROUTE As Directed 0.9% Sodium Chloride Inj [Ns] 1,000 ml Med 04/01/18 06:32 Discontinued IV 150 mls/hr 0.9% Sodium Chloride Inj [Ns] 1,000 ml Med 04/01/18 08:20 Active IV 150 mls/hr Ondansetron [Zofran] Med 04/01/18 07:15 Discontinued 4 mg IV NOW ONE Telemetry [OM.EQ] Routine Oth 04/01/18 08:21 Active EKG [EKG] Stat Ther 04/01/18 06:31 Draft Transfer/Admit Order [TRANSFER] Routine Transfer 04/01/18 08:17 Completed Result Diagrams: 04/01/18 06:45 04/01/18 06:45 - EKG 1 Time of EKG reading by physician:: 06:38 EKG Read and Signed by:: Jeronimo Briseno EKG Interpretation (*Must complete 3 of following elements*): Abnormal Rate: 110 Rhythm: Sinus tach [place]: normal QRS: RBB (incomplete), other (possible L atrial enlargement) DE Interval: normal ST Wave: non-specific ST changes Departure - Departure Date of Disposition Decision: 04/01/18 Time of Disposition Decision: 08:00 DIAGNOSIS: Altered mental status, Hyponatremia, Seizure Disposition: ADMITTED INPATIENT 09 Certified Medical Emergency: Emergent Condition: Fair Additional Freetext Instructions: ED Follow Up Instructions: You have been treated by a care provider in the Emergency Department. These instructions are being provided to you so you can have an understanding of how to care for yourself upon discharge. Upon discharge from the Emergency Department, you are responsible for making arrangements for follow-up care by a physician of your choice. Take all prescribed medications as directed. Return to the Emergency Department immediately for any new or worsening symptoms. You may call the Physician Referral phone number at [phone] to obtain a list of Physicians who are taking new patients. Referrals and Follow-Ups: None,PCP [Primary Care Provider] - - Critical Care Note This patient required my direct & personal management of CC.: No Attestation - Physician/ KAYLA Attestation Patient care was provided by Advanced Practice Provider:: No The physician spent face to face time with patient:: Yes Advanced Practice Provider documentation review:: Supervising physician onsite and consulted in the evaluation and care of this patient. The physician did have a face to face encounter with the patient.
[2018-04-01 07:04] LABS: BASO# 0.01 X1000 (0.0-0.2); HEMATOCRIT 43.3 % (42.0-52.0); HEMOGLOBIN 15.3 g/dL (14.0-18.0); IMM GRAN# 0.08 X1000 (0.0-0.04); IMM GRAN% 0.4 % (0.0-0.5); LYMPH# 3.01 X1000 (1.2-3.4); LYMPH% 14.3 % (20.5-51.1); MCHC 35.3 g/dL (33-37); MCV 87.7 FL (81-99); MONO# 2.08 X1000 (0.11-0.59); MONO% 9.9 % (1.7-9.3); MPV 11.7 FL (7.4-10.4); NEUT# 15.83 X1000 (1.4-6.5); NEUT% 75.4 % (42.2-75.2); PLT 377 X1000 (130-400); RBC 4.94 XMIL (4.7-6.1); RDW 13.7 % (11.5-14.5); WBC 21.01 X1000 (4.8-10.8)
[2018-04-01] MEDS ORDERED: ZOFRAN IV ONE (07:15)
[2018-04-01 07:22] LABS: ESTIMATED GFR > 60
[2018-04-01 07:32] LABS: AGAP 22; ALBUMIN 4.6 g/dL (3.5-5.0); ALKALINE PHOSPHATASE 136 U/L (32-122); BUN 12 mg/dL (8-22); CALCIUM 11.3 mg/dL (8.8-10.2); CHLORIDE 77 mmol/L (98-107); COSMO 247; CREATININE 0.8 mg/dL (0.7-1.2); GLUCOSE 227 mg/dL (70-104); GOT 23 U/L (10-34); GPT 11 U/L (10-44); POTASSIUM 4.1 mmol/L (3.5-5.1); TCO2 20 mmol/L (25-35); TOTAL PROTEIN 7.6 g/dL (6.3-8.3)
[2018-04-01 07:33] LABS: SODIUM 119 mmol/L (136-145)
--- NOTE | 2018-04-01 07:43 | Diag Imaging Result Doc PS360 ---
EXAM: CT HEAD W/O CONTRAST - 04/01/2018 HISTORY: seizure TECHNIQUE: CT head without contrast COMPARISON: 01/12/2018 FINDINGS: There is no evidence of intracranial hemorrhage, mass effect, midline shift, or hydrocephalus. There is no evidence of infarct, although acute infarcts may not be immediately visible. The skull appears intact. There is a mucous retention cyst or polyp at the left frontal sinus. The visualized paranasal sinuses and mastoid air cells otherwise appear clear. IMPRESSION: No visible acute intracranial abnormality. This exam was performed using automated exposure control, adjustment of mA or kV according to patient size, and/or use of iterative reconstruction technique. Electronically signed by Randy Harkins 04/01/2018 7:40 AM
--- NOTE | 2018-04-01 07:52 | Diag Imaging Result Doc PS360 ---
EXAM: CHEST-PORTABLE - 04/01/2018 HISTORY: seizure TECHNIQUE: Portable chest COMPARISON: 02/24/2018 FINDINGS: Heart size is normal. The lungs appear clear. There is no pleural effusion or pneumothorax identified. IMPRESSION: No evidence of acute disease. Electronically signed by Randy Harkins 04/01/2018 7:50 AM
[2018-04-01] MEDS: NS 1,000 ML IV ONE (08:20)
[2018-04-01 08:55] LABS: BILIRUBIN URINE NEGATIVE (NEGATIVE); BLOOD URINE 2+ (NEGATIVE); CLARITY CLEAR (CLEAR); COLOR YELLOW; GLUCOSE URINE NEGATIVE (NEGATIVE); KETONE URINE TRACE mg/dL (NEGATIVE); LEUKOCYTES URINE TRACE (NEGATIVE); NITRITE URINE NEGATIVE (NEGATIVE); PH URINE 6.5; PROTEIN URINE NEGATIVE (NEGATIVE); UROBILINOGEN URINE NORMAL
[2018-04-01 09:06] LABS: UR AMPHETAMINES QUAL NONE DETECTED (NONE DETECT); UR BARBITUATES QUAL NONE DETECTED (NONE DETECT); UR BENZODIAZEPIN QUAL NONE DETECTED (NONE DETECT); UR CANNABINOIDS QUAL PRESUMPTIVE POSITIVE (NONE DETECT); UR COCAINE QUAL NONE DETECTED (NONE DETECT); UR METHADONE QUAL NONE DETECTED (NONE DETECT); UR METHAMPHETAMINE QUAL NONE DETECTED (NONE DETECT); UR OPIATES QUAL PRESUMPTIVE POSITIVE (NONE DETECT); UR OXYCODONE QUAL NONE DETECTED (NONE DETECT); UR PCP QUAL NONE DETECTED (NONE DETECT); UR PROPOXYPHENE QUAL NONE DETECTED (NONE DETECT); UR TCA QUAL NONE DETECTED (NONE DETECT)
--- NOTE | 2018-04-01 09:11 | EKG Report ---
Test Performed on : 04/01/2018 06:38:28 AM Test Reason : seizure Blood Pressure : / mmHG Vent. Rate : 110 BPM Atrial Rate : 110 BPM P-R Int : 158 ms QRS Dur : 100 ms QT Int : 366 ms P-R-T Axes : 033 046 022 degrees QTc Int : 495 ms Sinus tachycardia. Possible Left atrial enlargement Incomplete right bundle branch block Nonspecific ST and T wave abnormality Abnormal ECG When compared with ECG of 23-FEB-2018 11:17, Vent. rate has increased BY [address] no longer elevated in Inferior leads ST now depressed in Lateral leads Nonspecific T wave abnormality now evident in Anterior leads Unconfirmed Result
[2018-04-01 09:23] LABS: URINE EPITHELIAL CELLS <10 /HPF (<10); URINE SOURCE CLEAN CATCH
[2018-04-01] MEDS ORDERED: TYLENOL PO PRN (16:46)
[2018-04-01 17:24] LABS: HEMATOCRIT 42.1 % (42.0-52.0); HEMOGLOBIN 14.5 g/dL (14.0-18.0); IMM GRAN# 0.05 X1000 (0.0-0.04); IMM GRAN% 0.3 % (0.0-0.5); LYMPH# 1.74 X1000 (1.2-3.4); LYMPH% 9.1 % (20.5-51.1); MCH 30.3 PG (27-31); MCHC 34.4 g/dL (33-37); MCV 87.9 FL (81-99); MONO# 2.26 X1000 (0.11-0.59); MONO% 11.8 % (1.7-9.3); MPV 11.4 FL (7.4-10.4); NEUT# 15.04 X1000 (1.4-6.5); NEUT% 78.8 % (42.2-75.2); PLT 309 X1000 (130-400); RBC 4.79 XMIL (4.7-6.1); RDW 13.7 % (11.5-14.5); WBC 19.09 X1000 (4.8-10.8)
[2018-04-01 17:41] LABS: AGAP 14; BUN 11 mg/dL (8-22); CALCIUM 10.5 mg/dL (8.8-10.2); CHLORIDE 83 mmol/L (98-107); COSMO 243; CREATININE 0.7 mg/dL (0.7-1.2); ESTIMATED GFR > 60; GLUCOSE 131 mg/dL (70-104); POTASSIUM 3.3 mmol/L (3.5-5.1); SODIUM 120 mmol/L (136-145); TCO2 24 mmol/L (25-35)
[2018-04-01] MEDS: ZOSYN 3.375 GM in NS 50 ML IV SCH (18:25)
[2018-04-01] MEDS: ZOFRAN IV PRN ×2 (18:38→20:37)
[2018-04-01] MEDS: VANCOMYCIN 1 GM/NS 1 GM/250 ML IVPB IV SCH (18:55)
[2018-04-01] MEDS ORDERED: FLEXERIL PO PRN (19:23)
[2018-04-01] MEDS ORDERED: OXY IR PO PRN (19:23)
--- NOTE | 2018-04-01 19:30 | HISTORY AND PHYSICAL ---
CHIEF COMPLAINT: Seizure. HISTORY OF PRESENT ILLNESS: This is a 57-year-old gentleman who has a history of seizures, who presented to the emergency room via EMS after having a seizure. The patient's stated that it lasted about 4 minutes. On EMS arrival, the patient was postictal. On arrival to the emergency room, he did slowly awaken. He was oriented to his name and place. Mr. Rose at the time of my exam is alert. He is awake. He is cooperative. Mr. Rose has a history of marijuana use, having been hospitalized in February 2018 for what was felt like altered mental status secondary to marijuana that was very likely laced with Spice. He is positive for marijuana. He does state that he had smoked it in the last 2 to 3 days. During my interview, the daughter stated that the patient's legs have been swollen over the last 2 weeks so she went to the store and bought an [id number] diuretic that the patient has taken for the last 3 to 5 days. We are unsure exactly how many pills a day he did take. He has also taken his lisinopril/hydrochlorothiazide. PAST MEDICAL HISTORY: Seizure disorder, hypertension, gastroesophageal reflux disease, chronic pain, anxiety, and depression. PAST SURGICAL HISTORY: Cholecystectomy, hernia repair, back and neck surgery, testicular torsion repair. SOCIAL HISTORY: He lives with his . He smokes. He does use marijuana daily. He denies alcohol use. ALLERGIES: Prednisone and aspirin. The aspirin causes swelling. Prednisone reaction is unknown. HOME MEDICATIONS: A list will be obtained by the nursing staff and once verified, we will review and restart it as appropriate. REVIEW OF SYSTEMS: Discussed with the patient and his daughter with pertinent positives stated in the HPI. The patient denies any syncope or dizziness, any chest pain or palpitations, any shortness of breath, cough, fever, chills, any night sweats, any nausea/vomiting, diarrhea, constipation, black or bloody vomitus or stools, any hematuria, dysuria, frequency, urgency. PHYSICAL EXAMINATION: GENERAL: This is a 57-year-old gentleman who is lying on the stretcher in the emergency room in no distress. VITAL SIGNS: Blood pressure is 150/86 with a heart rate of 94, respirations are 20, temperature is 99 degrees with room air saturations 95% to 98%. EYES: Pupils are equal, round, react to light. EOMs are intact. Sclerae are anicteric. HENT: Normocephalic, atraumatic. Mucous membranes are moist. NECK: Supple with trachea midline. CARDIOVASCULAR: Regular rate and rhythm. S1 and S2 appreciated. He has no lower extremity edema with peripheral pulses palpable x4 extremities. EXTREMITIES: Calves are nontender to palpation. PULMONARY: Breath sounds are clear with no increased work of breathing noted. Chest rises and falls symmetric with respiration. Chest wall is nontender to palpation. GASTROINTESTINAL: Abdomen is soft, nontender, nondistended with bowel sounds in all 4 quadrants. NEUROLOGIC: He is alert. He is oriented to person, place, time, and family members. He does follow commands, although he is slow to answer. LABORATORY DATA: WBC is 21 with a hemoglobin of 15.3, hematocrit 43.3, and platelets of 377,000. Sodium is 119, potassium 4.1, BUN 12, creatinine 0.8 with a glucose of 208, calcium is 11.3, total bilirubin of 2.4, alkaline phosphatase of 136. ASSESSMENT AND PLAN: 1. Seizure in a patient who has a known seizure disorder. We will continue the patient's Keppra. We will place him in ICU for close monitoring. 2. Hyponatremia. The patient's daughter did state that he was taking [id number] diuretics along with his hydrochlorothiazide. We will hold his diuretics. Continue with saline. We will redraw his labs in the morning. 3. Leukocytosis. The patient stated that he has been cold over the last week, feeling like his bones were cold. He also underwent left trochanteric femoral nail helical blade exchange March 02. We have obtained blood cultures. We will start vancomycin and Zosyn, and any further antibiotics will be culture driven. 4. Chronic pain. We will identify his home medications and continue as is appropriate. 5. Gastroesophageal reflux disease. We will start Prilosec. 6. Hypertension. We will continue his home medications. The patient will be admitted to ICU at [facility]. We will have neurological checks q.2 h. He will be on telemetry for close monitoring. Further treatments pending hospital course. Dictated by JESU Boles for Troy Reis MD This chart was documented by, JESU Boles and accurately reflects the services performed, treatment plan and medical decisions as attested by the providers signature Troy Reis MD. cc: JESU Boles MD
[2018-04-01] MEDS: LYRICA PO SCH (20:44)
[2018-04-01] MEDS ORDERED: KEPPRA PO SCH (21:00)
[2018-04-01] MEDS: KEPPRA PO SCH (21:45)
[2018-04-02] MEDS: ZOSYN 3.375 GM in NS 50 ML IV SCH ×3 (00:08→14:14)
[2018-04-02] MEDS: VANCOMYCIN 1 GM/NS 1 GM/250 ML IVPB IV SCH (05:54)
[2018-04-02 06:16] LABS: HEMATOCRIT 44.9 % (42.0-52.0); HEMOGLOBIN 15.6 g/dL (14.0-18.0); MCH 31.1 PG (27-31); MCHC 34.7 g/dL (33-37); MCV 89.6 FL (81-99); MPV 11.7 FL (7.4-10.4); RBC 5.01 XMIL (4.7-6.1); RDW 14.1 % (11.5-14.5); WBC 13.26 X1000 (4.8-10.8)
[2018-04-02] MEDS ORDERED: TYLENOL PO PRN (06:30)
[2018-04-02 06:46] LABS: AGAP 16; ALBUMIN 4.3 g/dL (3.5-5.0); ALKALINE PHOSPHATASE 120 U/L (32-122); BUN 8 mg/dL (8-22); CALCIUM 11.1 mg/dL (8.8-10.2); CHLORIDE 91 mmol/L (98-107); COSMO 268; CREATININE 0.9 mg/dL (0.7-1.2); ESTIMATED GFR > 60; GLUCOSE 97 mg/dL (70-104); GOT 16 U/L (10-34); GPT 10 U/L (10-44); MAGNESIUM 2.1 mg/dL (1.5-2.7); POTASSIUM 3.2 mmol/L (3.5-5.1); SODIUM 135 mmol/L (136-145); TCO2 28 mmol/L (25-35); TOTAL PROTEIN 7.6 g/dL (6.3-8.3)
[2018-04-02] MEDS: ZOFRAN IV PRN ×3 (07:58→23:13)
[2018-04-02] MEDS ORDERED: LYRICA PO SCH (09:00)
[2018-04-02] MEDS ORDERED: VANCOMYCIN IV PER PHARMACY MISC SCH (09:00)
[2018-04-02] MEDS: ZEBETA PO SCH (09:26)
[2018-04-02] MEDS: KEPPRA PO SCH ×2 (09:26→21:22)
[2018-04-02] MEDS: PEPCID PO SCH (09:27)
[2018-04-02] MEDS: NORVASC PO SCH (09:27)
[2018-04-02] MEDS ORDERED: NS 1,000 ML IV ONE (15:59)
[2018-04-02 16:57] LABS: I-STAT BE 0 mmoll (-2-3); I-STAT GLUCOSE 132 mg/dL (70-105); I-STAT HEMOGLOBIN 15.3 g/dL (11.5-17.5); I-STAT K 3.2 mmoll (3.5-4.9); I-STAT TCO2 25 mmoll (23-27); I-STAT pH 7.476 (7.350-7.450)
--- NOTE | 2018-04-02 17:29 | PROGRESS NOTE ---
DATE: 04/02/2018 SUBJECTIVE: Patient has no focal complaints. He seems much more awake, alert, oriented. OBJECTIVE: Blood pressure is 115/92, heart rate 73, respiratory 18, temperature 98.9 degrees, 98% on room air.Cardiovascular: Regular rate and rhythm. Pulmonary: Bilateral breath sounds. Clear to auscultation. GI: Was soft, nontender, nondistended. Bowel sounds are positive. Extremities: No clubbing or cyanosis. Lymphatic: No peripheral edema. Neurological: Nonfocal. LABORATORY DATA: Sodium is 135, potassium 3.2, T bilirubin 2.3, white count 13 , hemoglobin and hematocrit 15 and 46. UDS was negative. PROBLEM LIST: 1. Hyponatremia I would say euvolemic. We will continue treatment. Unclear etiology although I am suspicious this is related to hydrochlorothiazide and reset osmostat. We will continue urine sodium. He probably corrected a bit too quickly but we will monitor his levels on normal saline. 2. Seizure disorder, he has a lifelong history of epilepsy. He is supposed to be on Keppra, but likley hyponatremia triggered that. 3. Leukocytosis unclear etiology. Will continue to follow. 4. Gastroesophageal reflux disease. We will continue Prilosec. DISPOSITION: I think he is probably safe to go to the floor today and then home tomorrow if stable. We will continue to monitor. cc: MD Troy Smallwood MD MTDD
[2018-04-02] MEDS ORDERED: VANCOMYCIN 2,000 MG in NS 500 ML IV SCH (18:00)
[2018-04-02 19:36] LABS: AGAP 16; BUN 13 mg/dL (8-22); CHLORIDE 92 mmol/L (98-107); COSMO 266; CREATININE 1.2 mg/dL (0.7-1.2); ESTIMATED GFR > 60; GLUCOSE 120 mg/dL (70-104); POTASSIUM 3.1 mmol/L (3.5-5.1); SODIUM 132 mmol/L (136-145); TCO2 24 mmol/L (25-35)
[2018-04-02] MEDS: LYRICA PO SCH (21:22)
[2018-04-03 07:03] LABS: BASO# 0.01 X1000 (0.0-0.2); BASO% 0.1 % (0.0-0.8); HEMATOCRIT 42.6 % (42.0-52.0); HEMOGLOBIN 14.5 g/dL (14.0-18.0); IMM GRAN# 0.04 X1000 (0.0-0.04); IMM GRAN% 0.3 % (0.0-0.5); LYMPH# 3.96 X1000 (1.2-3.4); LYMPH% 33.2 % (20.5-51.1); MCH 31.5 PG (27-31); MCV 92.6 FL (81-99); MONO# 1.51 X1000 (0.11-0.59); MONO% 12.7 % (1.7-9.3); MPV 11.7 FL (7.4-10.4); NEUT# 6.39 X1000 (1.4-6.5); NEUT% 53.7 % (42.2-75.2); PLT 255 X1000 (130-400); RDW 14.2 % (11.5-14.5); WBC 11.91 X1000 (4.8-10.8)
[2018-04-03 07:20] LABS: AGAP 13; BUN 11 mg/dL (8-22); CALCIUM 10.1 mg/dL (8.8-10.2); CHLORIDE 95 mmol/L (98-107); COSMO 270; CREATININE 0.9 mg/dL (0.7-1.2); ESTIMATED GFR > 60; GLUCOSE 105 mg/dL (70-104); POTASSIUM 3.1 mmol/L (3.5-5.1); SODIUM 135 mmol/L (136-145); TCO2 27 mmol/L (25-35)
[2018-04-03 08:19] VITALS: BP 126/91
[2018-04-03] MEDS: ZEBETA PO SCH (08:40)
[2018-04-03] MEDS: KEPPRA PO SCH (08:40)
[2018-04-03] MEDS: NORVASC PO SCH (08:40)
[2018-04-03] MEDS: PEPCID PO SCH (08:40)
[2018-04-03] MEDS ORDERED: KLOR-CON PO ONE (11:45)
--- NOTE | 2018-04-04 03:51 | DISCHARGE SUMMARY ---
ADMISSION DATE: 04/01/2018 DISCHARGE DATE: 04/03/2018 ADDENDUM DISCHARGE DIAGNOSES: 1. Hyponatremia related likely to hydrochlorothiazide affect. 2. Seizure disorder. 3. Alcohol abuse. HOSPITAL COURSE: The patient is doing well. He is very adamant about going home. He did not tell me this, but he told his that he was going to leave at 3 p.m. regardless if he was discharged or not, but clinically he seems to be doing well. His sodium is up to 135. Again, I think the seizure was related to compliance issues with his Keppra, hyponatremia. His hyponatremia is likely related to reset osmostat, related to hydrochlorothiazide, which we will discontinue. His hypercalcemia is also resolved with stopping his HCTZ. We adjusted his medications. The only new one that I added was a short course of Klonopin for potential alcohol withdrawal, anxiety, and then we stopped his hydrochlorothiazide and his lisinopril for the time being. This is a [id number] encounter note with Yin Garcia. cc: MD Troy Smallwood MD
--- NOTE | 2018-04-04 14:59 | DISCHARGE SUMMARY ---
ADMISSION DATE: 04/01/2018 DISCHARGE DATE: 04/03/2018 PRIMARY CARE PHYSICIAN: None. ADMISSION DIAGNOSES: 1. Seizure in a patient known to have seizure disorder. 2. Hyponatremia. 3. Leukocytosis. 4. Chronic pain. 5. Gastroesophageal reflux disease. 6. Hypertension. DISCHARGE DIAGNOSES: 1. Seizure in a patient known to have seizure disorder. 2. Hyponatremia, resolved. 3. Leukocytosis. 4. Chronic pain. 5. Gastroesophageal reflux disease. 6. Hypertension. SUMMARY OF FINDINGS: This is a 57-year-old male with known seizures, who presented to the emergency room after having a seizure. The patient's stated that it lasted about 4 minutes. The patient was noted to be postictal, but did slowly awaken. He was oriented to his name and place. At the time he was admitted, was alert, awake, and cooperative. His urine drug screen was presumptive positive for cannabinoids. He was admitted to the intensive care unit. His CT of the head showed no visible acute intracranial abnormality. We supplemented his potassium. We corrected his sodium and it was felt that he could be discharged home. DISCHARGE MEDICATIONS: Include a prescription for Norvasc 10 mg p.o. daily (#30 with 1 refill), bisoprolol 5 mg p.o. daily (#30 with 1 refill), Klonopin 0.5 mg p.o. b.i.d. (#25 with 1 refill), and Keppra 1000 mg p.o. b.i.d. (#60 with 1 refill), and Lyrica 150 mg p.o. at bedtime (#30 with 1 refill). FOLLOWUP: He needs to obtain a primary care physician and follow up. All discharge instructions were reviewed with the patient and he verbalized understanding. This is a 33 minute discharge. Dictated by JESU Das for Srinivas Myrick MD cc: JESU Das MD Gregory S. Cheatham, MD
== END 2018-04-03 12:36 | disposition home or self-care (01) | DRG 101 ==
LOC: P.ED 06:19 → P.ICU 17:57 → SUATTDRO 17:57
PROVIDERS: ADMIT Family Medicine; ATTEND Internal Medicine
CPT/HCPCS: 51701; 70450; 71010; 71045; 80048; 80053; 80104; 80301; 80305; 81001; 82330; 82550; 82947; 82948; 83735; 83935; 83970; 84132; 84295; 84300; 84443; 84484; 85014; 85018; 85025; 85027; 87040; 87088; 93005; 96361; 96365; 96368; 96375; 99285; A9270; G0431; G0434; G0477; J2405; J2543; J3370; J7030; P9612; XXXXX

== ENCOUNTER 2018-05-19 12:57 | Inpatient (IN) ==
[2018-05-19] MEDS ORDERED: KEPPRA 1,500 MG in NS 100 ML IV ONE (14:01)
[2018-05-19] MEDS ORDERED: ASPIRIN PO ONE (14:01)
[2018-05-19 14:23] LABS: BASO# 0.01 X1000 (0.0-0.2); BASO% 0.1 % (0.0-0.8); HEMATOCRIT 53.7 % (42.0-52.0); LYMPH# 1.58 X1000 (1.2-3.4); LYMPH% 15.2 % (20.5-51.1); MCH 30.3 PG (27-31); MCHC 33.5 g/dL (33-37); MCV 90.3 FL (81-99); MONO# 0.59 X1000 (0.11-0.59); MONO% 5.7 % (1.7-9.3); MPV 12.5 FL (7.4-10.4); NEUT# 8.23 X1000 (1.4-6.5); PLT 251 X1000 (130-400); RBC 5.95 XMIL (4.7-6.1); RDW 14.2 % (11.5-14.5); WBC 10.41 X1000 (4.8-10.8)
[2018-05-19 14:37] LABS: AGAP 16; ALB/GLOB RATIO 1.4; ALBUMIN 4.4 g/dL (3.5-5.0); ALKALINE PHOSPHATASE 129 U/L (32-122); BUN 4 mg/dL (8-22); CALCIUM 10.1 mg/dL (8.8-10.2); CHLORIDE 99 mmol/L (98-107); COSMO 276; CREATININE 0.9 mg/dL (0.7-1.2); ESTIMATED GFR > 60; GLUCOSE 134 mg/dL (70-104); GOT 17 U/L (10-34); GPT 15 U/L (10-44); POTASSIUM 3.5 mmol/L (3.5-5.1); SODIUM 139 mmol/L (136-145); TCO2 24 mmol/L (25-35); TOTAL BILIRUBIN 1.05 mg/dL (0.20-1.00); TOTAL PROTEIN 7.5 g/dL (6.3-8.3)
--- NOTE | 2018-05-19 14:57 | Diag Imaging Result Doc PS360 ---
EXAM: CHEST-2 VIEWS 05/19/2018 HISTORY: chest pain TECHNIQUE: AP upright and lateral chest COMMENT: There is no evidence of acute cardiac or pulmonary disease. Compared to 04/01/2018 there has been no significant change. IMPRESSION: No evidence of acute disease. Electronically signed by Remy Roberts 05/19/2018 2:55 PM
[2018-05-19] MEDS ORDERED: DUONEB (A & A) INH PRN (16:10)
[2018-05-19 17:11] LABS: VITAMIN D 25 HYDROXY 8.2 NG/DL
--- NOTE | 2018-05-19 18:11 | Diag Imaging Result Doc PS360 ---
EXAM: CT THORAX W/O CONTRAST 05/19/2018 HISTORY: dyspnea/weight loss/smoker TECHNIQUE: This exam was performed using automated exposure control, adjustment of mA or kV according to patient size, and/or use of iterative reconstruction technique. COMMENT: There are calcified nodes in the right hilum. There is some apparent contrast medium in the esophagus. There is no evidence of significant adenopathy or abnormal fluid collections. There is no evidence of acute pulmonary disease. No previous thoracic studies are available for comparison. The regional skeleton appears to be intact. There is some atherosclerotic calcification in the aorta and right subclavian artery. There is no evidence of aneurysm. IMPRESSION: No evidence of acute disease. Electronically signed by Remy Roberts 05/19/2018 6:08 PM
--- NOTE | 2018-05-19 18:13 | PROVIDER DOCUMENTATION ---
This chart was entered by Roxann Gallardo Scribe, acting as scribe for Antonia Sarah MD. HPI-Chest Pain - General Chief Complaint: Edema Stated Complaint: EDEMA Time Seen by Provider: 05/19/18 13:22 Source: patient Allergies/Adverse Reactions: Patient Allergies Allergy/AdvReac Type Severity Reaction Status Date / Time prednisone Allergy Unknown Unknown Verified 05/19/18 13:10 Home Medications: Home Medication List Medication Instructions Recorded Confirmed Last Taken Type Amlodipine Besylate [Norvasc] 10 mg PO DAILY #30 tab 04/03/18 05/19/18 Unknown Rx Bisoprolol Fumarate 5 mg PO DAILY #30 tab 04/03/18 05/19/18 Unknown Rx Levetiracetam 1,000 mg PO BID #60 tab 04/03/18 05/19/18 Unknown Rx Cyclobenzaprine [Flexeril] 20 mg PO Q8HR 05/19/18 05/19/18 Unknown History - History of Present Illness-CP Nature of Presenting Problem: 57 yom presents to the ed with c/o intermittent chest pain, anxiety and bilateral feet edema. chest pain has been present 3 weeks and bilateral edema to feet has been since pt had hip sx in 02/2018 Location: reports: other (left side) Chest Pain Radiation: reports: no radiation Quality of Pain: reports: other (tingling) Severity in ED: mild Onset/Duration: other (3 weeks, last for few minutes) Timing: still present Context/Activities at Onset: reports: none Modifying Factors: improves with: nothing. worse with: urinating, vomiting Associated Symptoms: denies: abdominal pain, back pain, dizziness, fever/chills, nausea, shortness of breath, vomiting Nitro Today/Relief: no nitro taken today Aspirin Treatment Today: 325 mg x 1, provided by ED Prior Chest Pain/Cardiac Workup: reports: no prior chest pain Similar Symptoms Previously?: No Recently Seen Here or By Another Healthcare Provider: No Review of Systems - Adult - REVIEW OF SYSTEMS - ADULT Constitutional: denies: chills, fever Eyes: reports: no symptoms reported Ears, Nose, Mouth & Throat: reports: no symptoms reported Cardiovascular: reports: see HPI, chest pain, edema (bilateral feet). denies: palpitations, syncope Respiratory: denies: cough, shortness of breath, wheezing Gastrointestinal: denies: abdominal pain, diarrhea, nausea, vomiting Genitourinary: reports: no symptoms reported Musculoskeletal: denies: back pain, neck pain Integumentary: reports: see HPI, other (edema to bilateral feet) Neurological: denies: dizziness/vertigo, headache/migraines Psychiatric: reports: no symptoms reported Past History - Adult - PAST MEDICAL HISTORY-ADULT Review of Records: reports: Nursing Assessment Review, Medications Reviewed Major Childhood Illnesses: reports: denies history Cardiovascular: reports: HTN Respiratory: reports: denies history Gastrointestinal: reports: GERD Obstetrical/Gynecological: reports: denies history Genitourinary: reports: denies history Musculoskeletal: reports: chronic pain, orthopedic injury Neurological: reports: Seizures/Epilepsy Psychiatric: reports: anxiety, depression Endocrine/Immune: reports: denies history Other Conditions: reports: denies history - PRIOR SURGERIES/PROCEDURES Surgical/Procedure History: reports: cholecystectomy, hernia repair, back/neck, other (hernia, testicular torsion) - IMMUNIZATION STATUS Childhood Immunizations: See Nurse Assessment Flu Vaccine: See Nurse Assessment - FAMILY HISTORY Family History: reviewed, not pertinent - SOCIAL HISTORY Smoking: cigarettes, less than 1 pack/day Provider spent 3-5 mins advising pt. on dangers of tobacco.: Discussed manners to quit use, and f/u contacts for add'l counseling. Substance Use: alcohol Alcohol Use Frequency: occasionally Living Situation: family Physical Exam-General - PHYSICAL EXAM-ADULT Initial Vital Signs Reviewed: Yes - CONSTITUTIONAL General Appearance: alert, no apparent distress - EYES Eyes: PERRL/EOMI, pink conjunctivae - HEAD, EARS, NOSE, MOUTH & THROAT HENMT: normocephalic/atraumatic, moist mucous membranes, normal ENT inspection - NECK Neck: non-tender, full range of motion, supple, normal inspection - RESPIRATORY Respiratory: chest non-tender, lungs clear, normal breath sounds - CARDIOVASCULAR Cardiovascular: normal peripheral pulses, regular rate, rhythm - GASTROINTESTINAL (ABDOMEN) Abdominal Exam: normal bowel sounds, non tender, soft - MUSCULOSKELETAL Back Exam: normal inspection, no CVA tenderness, no vertebral tenderness Extremity: normal range of motion, normal gait, normal inspection, no calf tenderness, pelvis stable. 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, grossly normal - PSYCHIATRIC Psych/Mental Status: normal thought content, normal thought process, oriented x 3, anxious - HEART Score HEART Score: History: Moderately Suspicious HEART Score: ECG: Normal HEART Score: Age: 45-65 Years HEART Score: Risk Factors for Atherosclerotic Disease: > or = 3 Risk Factors or History of Atherosclerotic Disease HEART Score: Troponin: < or = Normal Limit Total HEART Score:: 4 Progress - PLAN OF CARE/RESULTS Progress/Plan/Lab Results: Vital Signs - 8 hr 05/19/18 13:08 05/19/18 13:11 05/19/18 13:31 Temperature 98.5 F Pulse Rate 82 83 76 Respiratory Rate 13 17 14 Blood Pressure 155/109 160/85 144/98 O2 Sat by Pulse Oximetry 98 96 95 05/19/18 14:01 05/19/18 14:31 05/19/18 15:01 Temperature Pulse Rate 69 78 75 Respiratory Rate 14 14 20 Blood Pressure 169/98 163/92 161/99 O2 Sat by Pulse Oximetry 96 97 99 05/19/18 15:31 05/19/18 15:57 05/19/18 16:01 Temperature 98.7 F Pulse Rate 90 71 Respiratory Rate 16 13 Blood Pressure 126/84 132/86 O2 Sat by Pulse Oximetry 96 96 05/19/18 16:31 05/19/18 17:01 Temperature Pulse Rate 68 76 Respiratory Rate 13 25 H Blood Pressure 123/85 148/93 O2 Sat by Pulse Oximetry 96 97 Laboratory Results - last 24 hr 05/19/18 05/19/18 05/19/18 13:13 13:13 13:13 WBC 10.41 RBC 5.95 Hgb 18.0 Hct 53.7 H MCV 90.3 MCH 30.3 MCHC 33.5 RDW Std Deviation 14.2 Plt Count 251 MPV 12.5 H Immature Gran % (Auto) 0.0 Neut % (Auto) 79.0 H Lymph % (Auto) 15.2 L [place] % (Auto) 5.7 Eos % (Auto) 0.0 Baso % (Auto) 0.1 Immature Gran # (Auto) 0.00 Neut # (Auto) 8.23 H Lymph # (Auto) 1.58 [place] # (Auto) 0.59 Eos # (Auto) 0.00 Baso # (Auto) 0.01 ESR D-Dimer, Quantitative Sodium 139 Potassium 3.5 Chloride 99 Carbon Dioxide 24 L Anion Gap 16 BUN 4 L Creatinine 0.9 Estimated GFR/1.73 m2 > 60 BUN/Creatinine Ratio 4 Glucose 134 H Calculated Osmolality 276 Calcium 10.1 Total Bilirubin 1.05 H AST 17 ALT 15 Alkaline Phosphatase 129 H Troponin T C-Reactive Prot, Quant Gob-A-Owocnmqjqhb Pept 674 H Total Protein 7.5 Albumin 4.4 Globulin 3.1 Albumin/Globulin Ratio 1.4 Vitamin B12 Vitamin D 25-Hydroxy Folate TSH Free T4 05/19/18 05/19/18 05/19/18 13:13 13:13 13:13 WBC RBC Hgb Hct MCV MCH MCHC RDW Std Deviation Plt Count MPV Immature Gran % (Auto) Neut % (Auto) Lymph % (Auto) [place] % (Auto) Eos % (Auto) Baso % (Auto) Immature Gran # (Auto) Neut # (Auto) Lymph # (Auto) [place] # (Auto) Eos # (Auto) Baso # (Auto) ESR 1 D-Dimer, Quantitative Sodium Potassium Chloride Carbon Dioxide Anion Gap BUN Creatinine Estimated GFR/1.73 m2 BUN/Creatinine Ratio Glucose Calculated Osmolality Calcium Total Bilirubin AST ALT Alkaline Phosphatase Troponin T < 0.010 C-Reactive Prot, Quant 0.39 Nfc-W-Hpqpmoszhbn Pept Total Protein Albumin Globulin Albumin/Globulin Ratio Vitamin B12 Vitamin D 25-Hydroxy Folate TSH Free T4 05/19/18 05/19/18 05/19/18 13:13 13:13 13:13 WBC RBC Hgb Hct MCV MCH MCHC RDW Std Deviation Plt Count MPV Immature Gran % (Auto) Neut % (Auto) Lymph % (Auto) [place] % (Auto) Eos % (Auto) Baso % (Auto) Immature Gran # (Auto) Neut # (Auto) Lymph # (Auto) [place] # (Auto) Eos # (Auto) Baso # (Auto) ESR D-Dimer, Quantitative Sodium Potassium Chloride Carbon Dioxide Anion Gap BUN Creatinine Estimated GFR/1.73 m2 BUN/Creatinine Ratio Glucose Calculated Osmolality Calcium Total Bilirubin AST ALT Alkaline Phosphatase Troponin T C-Reactive Prot, Quant Wbj-U-Hopucekquqb Pept Total Protein Albumin Globulin Albumin/Globulin Ratio Vitamin B12 376 Vitamin D 25-Hydroxy 8.2 Folate 6.6 L TSH Free T4 1.52 05/19/18 05/19/18 13:13 13:30 WBC RBC Hgb Hct MCV MCH MCHC RDW Std Deviation Plt Count MPV Immature Gran % (Auto) Neut % (Auto) Lymph % (Auto) [place] % (Auto) Eos % (Auto) Baso % (Auto) Immature Gran # (Auto) Neut # (Auto) Lymph # (Auto) [place] # (Auto) Eos # (Auto) Baso # (Auto) ESR D-Dimer, Quantitative < 0.27 Sodium Potassium Chloride Carbon Dioxide Anion Gap BUN Creatinine Estimated GFR/1.73 m2 BUN/Creatinine Ratio Glucose Calculated Osmolality Calcium Total Bilirubin AST ALT Alkaline Phosphatase Troponin T C-Reactive Prot, Quant Syb-F-Lyfgbddpooh Pept Total Protein Albumin Globulin Albumin/Globulin Ratio Vitamin B12 Vitamin D 25-Hydroxy Folate TSH 1.64 Free T4 Orders Category Date Time Status Admit Patient To Inpatient Status Routine AdmDCTranf 05/19/18 16:12 Active Intake and Output As Ordered Q 8-HR ASSESS Care 05/19/18 16:00 Active Saline Loc NOW Care 05/19/18 14:16 Active Vital Signs Order Q 4-HR ASSESS Care 05/19/18 16:00 Active Z-Document. for Tele Applied ORDERED Care 05/19/18 15:57 Active GI Soft Diet Diet 05/19/18 16:[address] ABD/PELVIS W/ORAL CONT ONLY [CT] Routine Exams 05/19/18 15:[address] THORAX W/O CONTRAST [CT] Routine Exams 05/19/18 15:55 Taken cxr [CHEST-2 VIEWS] [RAD] Stat Exams 05/19/18 14:06 Completed BASIC METABOLIC PANEL [CHEM] DAILY Lab 05/20/18 06:00 Ordered BASIC METABOLIC PANEL [CHEM] DAILY Lab 05/21/18 06:00 Ordered BASIC METABOLIC PANEL [CHEM] DAILY Lab 05/22/18 06:00 Ordered BNP [PRO B-NATRIURETIC PEPTIDE] Stat Lab 05/19/18 13:13 Completed CBC WITH ELECTRONIC DIFF [HEME] Stat Lab 05/19/18 13:13 Completed CBC WITH NO DIFF [HEME] Routine Lab 05/20/18 06:00 Ordered CMP [COMPREHENSIVE METABOLIC PANEL] [CHEM] Stat Lab 05/19/18 13:13 Completed CRP [C REACTIVE PROT QUANT] [CHEM] Routine Lab 05/19/18 13:13 Completed Cardiac Profile [CK PROFILE] [SP CHEM] Q8H Lab 05/19/18 21:00 Ordered Cardiac Profile [CK PROFILE] [SP CHEM] Q8H Lab 05/20/18 05:00 Ordered D-DIMER [COAG] Stat Lab 05/19/18 13:30 Completed FOLATE Routine Lab 05/19/18 13:13 Completed FREE T4 Routine Lab 05/19/18 13:13 Completed HEPATITIS PROFILE [HH] Routine Lab 05/19/18 16:28 Received LIPID PROFILE W/DIR LDL [LIPIDS] Routine Lab 05/20/18 06:00 Ordered SED RATE [HEME] Routine Lab 05/19/18 13:13 Completed TROPONIN T Q8H Lab 05/19/18 21:00 Ordered TROPONIN T Q8H Lab 05/20/18 05:00 Ordered TROPONIN T Stat Lab 05/19/18 13:13 Completed TSH Stat Lab 05/19/18 13:13 Completed VITAMIN B12 Routine Lab 05/19/18 13:13 Completed VITAMIN D 25 HYDROXY Routine Lab 05/19/18 13:13 Completed Albuterol 2.5MG/Ipratrop 0.5MG [Duoneb (A & A)] Med 05/19/18 16:10 Active 3 ml INH Q6H PRN PRN Amlodipine [Norvasc] Med 05/20/18 09:00 Active 10 mg PO DAILY Aspirin Med 05/19/18 14:01 Discontinued 325 mg PO NOW ONE Aspirin EC Med 05/20/18 09:00 Active 81 mg PO DAILY Carvedilol [Coreg] Med 05/19/18 21:00 Active 6.25 mg PO Q12HR Levetiracetam [Keppra] Med 05/19/18 21:00 Discontinued 1,000 mg PO BID Levetiracetam [Keppra] Med 05/20/18 05:00 Active 1,000 mg PO BID Levetiracetam [Keppra] 1,500 mg Med 05/19/18 14:01 Discontinued 0.9% Sodium Chloride Inj [Ns] 100 ml IV NOW Metoprolol [Lopressor] Med 05/19/18 21:00 Discontinued 25 mg PO Q12HR Omeprazole [Prilosec] Med 05/20/18 07:00 Active 40 mg PO DAILY@0700 Oxycodone/APAP 5 mg/325 mg [Percocet-5] Med 05/19/18 16:00 Active 1 each PO Q4H PRN PRN Pregabalin [Lyrica] Med 05/19/18 21:00 Active 25 mg PO BID Temazepam [Restoril] Med 05/19/18 21:00 Active 7.5 mg PO QHS Aerosol Treatments Routine Oth 05/19/18 16:11 Active Aerosol Treatments Stat Oth 05/19/18 16:11 Active Oxygen Device Routine Oth 05/19/18 16:07 Active Pulse Oximetry Routine Oth 05/19/18 16:07 Active Telemetry [OM.EQ] Routine Oth 05/19/18 15:57 Active EKG [EKG] Routine Ther 05/20/18 07:00 Ordered Echo Spec/Color Dop W/O Contra Routine Ther 05/20/18 08:00 Ordered Transfer/Admit Order [TRANSFER] Routine Transfer 05/19/18 16:11 Ordered Result Diagrams: 05/19/18 13:13 05/19/18 13:13 - REASSESSMENT Reassessment #1 Time Reassessed: 15:37 Status: unchanged - EKG 1 Time of EKG reading by physician:: 13:09 EKG Read and Signed by:: Antonia Sarah EKG Interpretation (*Must complete 3 of following elements*): Abnormal Rate: 86 Rhythm: sinus shythm w/ occ pvc [place]: normal QRS: RBB (incomplete), PVC's, other (poss left atrial enlargement) MS Interval: normal Comments: st and t wave abnormality, consider anterior ischemia - XRAY 1 XRAY: Bilateral XRAY Study: Chest Impression: See EMR Report (EXAM: CHEST-2 VIEWS 05/19/2018 HISTORY: chest pain TECHNIQUE: AP upright and lateral chest COMMENT: There is no evidence of acute cardiac or pulmonary disease. Compared to 04/01/2018 there has been no significant change. IMPRESSION: No evidence of acute disease. Electronically signed by Remy Roberts 05/19/2018 2:55 PM 05/19/18 [id number] Interpreting Physician: Remy Roberts MD Dictated Date/Time: 05/19/18 [id number] cc: Antonia Sarah MD; None,PCP) - CONSULTS/PCP/HOSPITALIST Notification #1 *Consult/PCP/Hospitalist*: Dr. Marino Time Discussed: 15:31 Consult Disposition: Admit (Hx, PE and patient care discussed, accepted.) Departure - Departure Date of Disposition Decision: 05/19/18 Time of Disposition Decision: 15:31 DIAGNOSIS: Tobacco use disorder Chest pain Qualifiers: Chest pain type: unspecified Qualified Code(s): R07.9 - Chest pain, unspecified Disposition: ADMITTED INPATIENT 09 Certified Medical Emergency: Emergent Condition: Stable - Critical Care Note This patient required my direct & personal management of CC.: Yes Total Time (mins): 32 Critical Care Statement: This patient required my direct personal management to treat or rule out processes, the absence of which, could potentiallly result in sudden, clinically significant life or limb threatening deterioration. Attestation - Physician/ KAYLA Attestation Patient care was provided by Advanced Practice Provider:: No The physician spent face to face time with patient:: Yes Advanced Practice Provider documentation review:: Supervising physician onsite and consulted in the evaluation and care of this patient. The physician did have a face to face encounter with the patient. This chart was documented by the indicated scribe, (Roxann Gallardo Scribe) and accurately reflects the services I performed and decisions made by me, Antonia Sarah MD, as attested by the provider's signature.
--- NOTE | 2018-05-19 18:16 | Diag Imaging Result Doc PS360 ---
EXAM: CT ABD/PELVIS W/ORAL CONT ONLY 05/19/2018 HISTORY: abdominal pain/weight loss TECHNIQUE: This exam was performed using automated exposure control, adjustment of mA or kV according to patient size, and/or use of iterative reconstruction technique. COMMENT: The current study is compared with the previous examination of 01/12/2018. There are granulomata in the spleen. There are some granulomata in the liver. There has been cholecystectomy. Compared to the previous study there has been no definite change in the appearance of the liver, although the lack of intravenous contrast on the current study reduces sensitivity. There is a small lucency posteriorly in the right hepatic lobe which was also present previously and is likely a cyst. The adrenal glands are stable in size. There is no evidence of hydronephrosis. There is a 2 mm sized stone in the left collecting system. The pancreas is grossly normal in appearance. There are atherosclerotic calcifications in the aorta without evidence of aneurysm. There is no evidence of significant adenopathy. The stomach and small bowel are unremarkable. There is some gas in the colon without evidence of dilatation. Pelvis: The appendix is normal in appearance. There is no evidence of free fluid. There are some stool in the rectum. The urinary bladder is unremarkable. There is no evidence of significant adenopathy. There has been internal fixation of a fracture of the proximal left femur. The head of the femur is somewhat fragmented. This was also the case at the time the previous study. There are degenerative changes in the lumbar spine. IMPRESSION: Left nephrolithiasis without evidence of obstructive uropathy. Essentially stable since 01/12/2018. Electronically signed by Remy Roberts 05/19/2018 6:14 PM
[2018-05-19] MEDS: PERCOCET-5 PO PRN (19:02)
--- NOTE | 2018-05-19 20:09 | HISTORY AND PHYSICAL ---
PRIMARY CARE PHYSICIAN: Dr. Margarita Humphries. CHIEF COMPLAINT: Increased shortness of bowel and intermittent chest pain for the last month. HISTORY OF PRESENT ILLNESS: Mr. Rose is a 57-year-old male with a history of epilepsy, depression, anxiety disorder and chronic back pain who presented to the ER today with a chief complaint of intermittent chest pain with increased shortness of breath. The patient states that for the last month or so he has been having episodes of intermittent chest pain that occurs at rest and on exertion. He also reports that he has been feeling more short of breath lately. He also reports that he has had no appetite for the last week and complains of abdominal pain as well as nausea, but no vomiting. The patient states that his last bowel movement was yesterday, and it was normal. The patient reports that he has been seen by Dr. Kidd in the past. The patient states that he does smoke cigarettes on occasion, but not daily. The patient's initial cardiac enzymes in the ER were noted to be negative. At this time the patient is chest pain free. A CT of the chest was done that was noted to be unremarkable, and a D-dimer was negative. PAST MEDICAL HISTORY: 1. Seizure disorder 2. Depression. 3. Anxiety disorder. 4. Chronic back pain. 5. Hypertension. PAST SURGICAL HISTORY: 1. Left trochanteric femoral nail with hardware exchange. 2. IM nail of left femur. 3. Hernia repair. 4. Testicular torsion repair. 5. Cholecystectomy. SOCIAL HISTORY: The patient is and lives at home with his . He does smoke tobacco occasionally. He also smokes marijuana. He denies any alcohol usage. ALLERGIES: Prednisone. FAMILY HISTORY: Reviewed and noncontributory. HOME MEDICATIONS: 1. Norvasc 10 mg p.o. daily. 2. Keppra 1000 mg p.o. twice a day. 3. Bisoprolol 5 mg p.o. daily. REVIEW OF SYSTEMS: A 12-point review of systems has been performed. Please refer to the history of present illness for pertinent positives and negatives. PHYSICAL EXAMINATION: VITAL SIGNS: Temperature 98.2, blood pressure 151/94, heart rate 71, respirations 20, O2 saturation 100% on room air. GENERAL: This is a chronically ill-appearing elderly male lying on the stretcher no acute distress. SKIN: Normal turgor. No rashes. No lesions. HEAD: Normocephalic, atraumatic. EYES: Conjunctiva clear, EOMI, PERRLA. NECK: Supple. No JVD. No lymphadenopathy. No carotid bruits. HEART: S1, S2 normal. Regular rate and rhythm. No murmurs, no rubs. LUNGS: Clear to auscultation bilaterally. No wheezing. No rales. No rhonchi. ABDOMEN: Positive bowel sounds. Soft, nontender, nondistended. EXTREMITIES: Trace pedal edema. No cyanosis. No calf tenderness. NEUROLOGIC: The patient is alert and oriented x4. No focal neurologic deficits noted. Cranial nerves II-XII intact. LABS: White blood cell count 10, hemoglobin 18, hematocrit 53, platelets 251, sodium 139, potassium 3.5, chloride 99. CO2 is 24, BUN 4, creatinine 0.9 glucose 134, total bilirubin 1, AST 17, ALT 15, alkaline phosphatase 129. Troponin less than 0.01. ProBNP 674, albumin 4.4. B12 376, vitamin D level 8.2, folate 6.6. TSH 1.64. CT of the chest shows no acute disease. CT of the abdomen and pelvis shows left nephrolithiasis without evidence of obstructive uropathy. Stable. ASSESSMENT AND PLAN: 1. Chest pain. Will admit the patient and order serial cardiac enzymes. Will also order a repeat EKG. We will start the patient on aspirin and beta manny. We will check a lipid profile in the morning. We will also order an echocardiogram and consult with the seal delivery vehicle officer. 2. Seizure disorder. We will continue on Keppra. 3. Hypertension. Continue on Norvasc. 4. Folate deficiency. Will start the patient on folic acid. 5. Vitamin D deficiency. Will start the patient on vitamin D replacement. 6. Gastroesophageal reflux disease. We will start the patient on omeprazole. 7. Deep vein thrombosis prophylaxis. Will start the patient on Lovenox. cc: Rosalba Walker MD MTDD
[2018-05-19] MEDS ORDERED: LOPRESSOR PO SCH (21:00)
[2018-05-19] MEDS ORDERED: KEPPRA PO SCH (21:00)
[2018-05-19] MEDS ORDERED: RESTORIL PO SCH (21:00)
[2018-05-19] MEDS: LYRICA PO SCH (23:57)
[2018-05-19] MEDS: COREG PO SCH (23:58)
[2018-05-20] MEDS: PERCOCET-5 PO PRN ×5 (05:12→23:02)
[2018-05-20 06:27] LABS: HEMATOCRIT 49.4 % (42.0-52.0); HEMOGLOBIN 16.4 g/dL (14.0-18.0); MCH 30.8 PG (27-31); MCHC 33.2 g/dL (33-37); MCV 92.7 FL (81-99); MPV 12.2 FL (7.4-10.4); RBC 5.33 XMIL (4.7-6.1); RDW 14.2 % (11.5-14.5); WBC 9.65 X1000 (4.8-10.8)
[2018-05-20] MEDS: PRILOSEC PO SCH (06:30)
[2018-05-20] MEDS: KEPPRA PO SCH ×3 (06:31→21:45)
[2018-05-20 06:58] LABS: AGAP 11; BUN 6 mg/dL (8-22); CALCIUM 10.3 mg/dL (8.8-10.2); CHLORIDE 98 mmol/L (98-107); COSMO 271; CREATININE 0.8 mg/dL (0.7-1.2); ESTIMATED GFR > 60; GLUCOSE 90 mg/dL (70-104); SODIUM 137 mmol/L (136-145); TCO2 28 mmol/L (25-35)
[2018-05-20] MEDS ORDERED: KLOR-CON PO ONE (07:03)
[2018-05-20 07:55] LABS: MAGNESIUM 1.9 mg/dL (1.5-2.7); PHOSPHORUS 2.5 mg/dL (2.7-4.5)
[2018-05-20] MEDS: FOLIC ACID PO SCH (08:30)
[2018-05-20] MEDS: ASPIRIN EC PO SCH (08:30)
[2018-05-20] MEDS: NORVASC PO SCH (08:31)
[2018-05-20] MEDS: COREG PO SCH ×2 (08:31→21:45)
[2018-05-20] MEDS: LOVENOX SUBQ SCH (08:31)
[2018-05-20] MEDS: LYRICA PO SCH ×2 (08:31→21:44)
[2018-05-20] MEDS ORDERED: SODIUM PHOSPHATE 20 MMOL in NS 250 ML IV ONE (09:00)
[2018-05-20] MEDS ORDERED: VITAMIN D PO SCH (09:00)
--- NOTE | 2018-05-20 10:28 | CARDIOLOGY CONSULTATION ---
DATE: 05/20/2018 REQUESTING PHYSICIAN: Hospitalist Service. REASON FOR CONSULTATION: Chest pain, swelling. HISTORY OF PRESENT ILLNESS: Mr. Rose is a 57-year-old male who presented to the emergency room yesterday, mostly because for several weeks, he had experienced swelling of his lower extremities, and this was getting worse. Initially started with the left leg, and then it appeared as if the right leg was also getting swollen. He has difficulty getting around since he had a fracture of the left femur, requiring intramedullary nailing. He has been walking with a walker for the past few years. He reported at the time of his encounter in the ER that he was having some intermittent chest discomfort that started the same day, of [id number] severity, and radiated under the left breast. This was certainly very atypical; however, there was concern because of the patient's age. They did an EKG that showed sinus rhythm with incomplete right bundle branch block, and they have done a number of troponins, a total of 3, beginning at 1 p.m. yesterday, ending at 6 a.m. today. The 3 of them are negative. His EKG also from first contact, which was at 1 p.m., showed the same pattern with one isolated PVC. The patient is not having any chest pain this morning. I am seeing him at about 9:30 on 05/20/2018. He is seemingly comfortable, in no distress. PAST MEDICAL HISTORY: Positive for hypertension. He has a longstanding history of seizure disorder, which led to disability. PAST SURGICAL HISTORY: He has had cholecystectomy and abdominal hernia repair and a fractured left femur requiring surgery. SOCIAL HISTORY: He has been to his for about 30 years. They have 2 children. 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 Because of the worsening of the seizure disorder, he had to go on disability. He could not drive his car to go to the workplace. He has been a smoker intermittently, not on a daily basis. He does not drink alcohol. FAMILY HISTORY: Negative for heart disease. He is a single child. REVIEW OF SYSTEMS: He does not have any history of diabetes or history of heart disease in the past. No complaints of chest pain or myocardial infarction in the past. He has had issues with depression for a long time. He has had some issues with substance misuse or abuse. No history of hypothyroid. No history of adrenal disorder. No history of stomach pain, diarrhea, or hematemesis. No cough, wheezing, pneumonia, or tuberculosis. No history of migraine headache or brain tumors. No arrhythmias or syncope. No hearing or visual problems. No genitourinary disorders. No kidney stones. PHYSICAL EXAMINATION: Vital Signs: Today, his blood pressure is 137/76, temperature 98 degrees, pulse 58, respirations 18. General: He is awake, alert, oriented, in no distress. HEENT: Unremarkable. Chest: Clear to auscultation and percussion. Heart: Sounds are regular rhythmic. I do not hear a gallop or murmur. Abdomen: Nontender, soft. No masses. No hepatomegaly. Extremities: Good pulses. No peripheral edema. Neurological: Follows commands with all four extremities. IMAGING AND LABORATORY DATA: Blood work shows hemoglobin 16.4, hematocrit 49.4, white cell count 9650. Sodium 137, potassium 3.0, BUN and creatinine normal, calcium is 10.3. Phosphorus is low at 2.5. His PTH is elevated at 105 (normal is less than 65 pg/mL). His triglycerides are 123, cholesterol 151, LDL 100, HDL 39. CT of the chest was done yesterday, which I have reviewed. This shows no evidence of coronary artery calcification of any significant degree. IMPRESSION: 1. Patient presenting with atypical chest discomfort. 2. Swelling with mild elevation of proBNP level. ProBNP is measured, in his case, at 674 pg/mL (normal is up to 177). Possible case of diastolic heart failure. 3. History of hypertension. 4. History of seizure disorder. 5. Physical limitation because of a previous injury to left leg, walking with walker. RECOMMENDATION: At this time, we will arrange for an echocardiogram and a Lexiscan myocardial perfusion stress test to further evaluate his cardiac status. The fact that he has no coronary calcifications on CT scan of the chest, given his age and elevated parathyroid hormone level, is encouraging. He is less likely to have significant coronary disease. At any rate, we will see what the stress shows and will take it from there. cc: Edin Kirk MD MTDD
[2018-05-20] MEDS: NS 1,000 ML IV SCH (14:25)
[2018-05-20] MEDS: FLEXERIL PO PRN ×2 (14:34→23:02)
--- NOTE | 2018-05-20 20:16 | PROGRESS NOTE ---
DATE: 05/20/2018 SUBJECTIVE: The patient states that he feels a lot better today. He does complain of pain in his left hip that is chronic. He denies having any chest pain. OBJECTIVE: Vital Signs: Temperature 97.9 degrees, blood pressure 177/89, heart rate 70, respirations 18, O2 saturations 98% on room air. General: This is a chronically ill-appearing elderly male lying in bed in no acute distress. Heart: S1, S2 normal. Regular rate and rhythm. Lungs: Clear to auscultation bilaterally. No wheezing. No rales. No rhonchi. Abdomen: Positive bowel sounds. Soft, nontender, nondistended. Extremities: Trace pedal edema. Neurologic: The patient is alert and oriented x3. LABORATORY DATA: White blood count 9.6, hemoglobin 16, hematocrit 49, platelets 231,000. Sodium 137, potassium 3, chloride 98, CO2 of 28, BUN 6, creatinine 0.8, glucose 90, magnesium 1.9, phosphorus 2.5, calcium 10.3. ASSESSMENT AND PLAN: 1. Chest pain. Improved. The patient is scheduled for stress test tomorrow. 2. Suspected primary hyperparathyroidism. I am going to order a 24-hour urine for calcium. Also will order a parathyroid scan. We will gently hydrate the patient and monitor the calcium level closely. 3. Seizure disorder. Continue on Keppra. 4. Vitamin D deficiency. Continue vitamin D replacement. 5. Hypertension. Continue on Coreg and Norvasc. 6. Chronic left hip pain. Continue with p.r.n. pain medication. 7. Hypokalemia. We will replace the patient's potassium. 8. Hypophosphatemia. We will replace the patient's phosphorus. 9. Folate deficiency. We will start the patient on folic acid. cc: Rosalba Walker MD MTDD
[2018-05-20] MEDS ORDERED: RESTORIL PO SCH (21:00)
[2018-05-21] MEDS: PERCOCET-5 PO PRN ×2 (03:19→14:26)
[2018-05-21] MEDS: NS 1,000 ML IV SCH (03:20)
[2018-05-21 06:25] LABS: HEMATOCRIT 45.5 % (42.0-52.0); MCH 30.6 PG (27-31); MCV 92.9 FL (81-99); MPV 12.2 FL (7.4-10.4); RBC 4.9 XMIL (4.7-6.1); RDW 13.8 % (11.5-14.5); WBC 6.55 X1000 (4.8-10.8)
[2018-05-21] MEDS: PRILOSEC PO SCH (06:31)
[2018-05-21 06:57] LABS: MAGNESIUM 1.9 mg/dL (1.5-2.7); PHOSPHORUS 3.1 mg/dL (2.7-4.5)
--- NOTE | 2018-05-21 07:11 | EKG Report ---
Test Performed on : 05/19/2018 1:09:33 PM Test Reason : chest pain Blood Pressure : / mmHG Vent. Rate : 086 BPM Atrial Rate : 086 BPM P-R Int : 180 ms QRS Dur : 092 ms QT Int : 366 ms P-R-T Axes : 054 023 022 degrees QTc Int : 437 ms Sinus rhythm. with occasional premature ventricular complexes. Possible Left atrial enlargement Incomplete right bundle branch block ST & T wave abnormality, consider anterior ischemia Abnormal ECG When compared with ECG of 01-APR-2018 06:38, premature ventricular complexes. are now present Inverted T waves have replaced nonspecific T wave abnormality in Anterior leads Confirmed by Daniela CHAPARRO, Spike ([id number]) on 05/21/2018 8:51:22 AM
--- NOTE | 2018-05-21 07:11 | EKG Report ---
Test Performed on : 05/20/2018 06:12:21 AM Test Reason : chest pain Blood Pressure : / mmHG Vent. Rate : 058 BPM Atrial Rate : 058 BPM P-R Int : 160 ms QRS Dur : 106 ms QT Int : 464 ms P-R-T Axes : 037 033 026 degrees QTc Int : 455 ms Sinus bradycardia. Possible Left atrial enlargement Incomplete right bundle branch block T wave abnormality, consider anterior ischemia Abnormal ECG When compared with ECG of 19-MAY-2018 13:09, (Unconfirmed) premature ventricular complexes. are no longer present Vent. rate has decreased BY 28 BPM Confirmed by Daniela CHAPARRO, Spike ([id number]) on 05/21/2018 8:54:41 AM
[2018-05-21 07:29] LABS: AGAP 11; BUN 8 mg/dL (8-22); CHLORIDE 104 mmol/L (98-107); COSMO 279; CREATININE 0.7 mg/dL (0.7-1.2); ESTIMATED GFR > 60; GLUCOSE 85 mg/dL (70-104); POTASSIUM 3.6 mmol/L (3.5-5.1); SODIUM 141 mmol/L (136-145); TCO2 26 mmol/L (25-35)
--- NOTE | 2018-05-21 08:33 | ECHO REPORT ---
ORDER DATE: 05/20/2018 INTERPRETING PHYSICIAN: Dr. Kirk REQUESTING PHYSICIAN: CLINICAL INDICATIONS: This is a 57-year-old male with chest pain and shortness of breath. M-MODE MEASUREMENTS: Right ventricle: cm. Left ventricle end diastole: 5.0 cm. Left ventricle end systole: 2.8 cm. Posterior wall: 1.1 cm. Interventricular septum: 1.1 cm. Left atrium: 3.0 cm. Aortic root: 3.5 cm. SUMMARY OF 2-DIMENSIONAL IMAGIN. The left ventricular function is normal. Ejection fraction is 65%. No wall motion abnormality is noted. 2. Aortic valve looks normal. Color flow mapping is unremarkable. 3. Mitral valve shows mild degree of regurgitation. 4. Pulse wave Doppler of mitral inflow shows reversal of the E and the A ratio. The ratio is 0.8. 5. Tissue Doppler of septal and lateral mitral annulus averages 10 cm. 6. There is no diastolic dysfunction. 7. The atria appear to be normal. 8. The tricuspid valve looks normal. Color flow mapping is unremarkable. 9. Pulmonic valve looks normal. Color flow mapping is unremarkable. 10.There is no mass or thrombus. 11.No pericardial effusion. CONCLUSIONS: In summary, this echocardiographic study appears to be grossly within normal range. cc: MD Rosalba Pressley MD
[2018-05-21] MEDS ORDERED: LEXISCAN ONE (10:34)
[2018-05-21 10:38] LABS: UR CALCIUM 8.7 mg/dL
[2018-05-21 10:40] LABS: UR CALCIUM TOTAL 182.7 mg/24 (0.0-30.0)
[2018-05-21 11:13] LABS: HEPATITIS PROFILE ACUTE SEE COMMENTS
--- NOTE | 2018-05-21 11:46 | Diag Imaging Result Doc PS360 ---
PARATHYROID W/SPECT - 05/21/2018 INDICATION: hyperparathyroidism TECHNIQUE: 14.5 mCi of sestamibi was administered COMPARISON: None FINDINGS: There is normal localization pattern of the radiotracer's. There is no abnormal persistent uptake. IMPRESSION: Negative for parathyroid abnormality. Electronically signed by Khari Mccarthy 05/21/2018 11:43 AM
[2018-05-21] MEDS: FOLIC ACID PO SCH (13:34)
[2018-05-21] MEDS: NORVASC PO SCH (13:34)
[2018-05-21] MEDS: COREG PO SCH (13:34)
[2018-05-21] MEDS: ASPIRIN EC PO SCH (13:34)
[2018-05-21] MEDS: KEPPRA PO SCH (13:34)
[2018-05-21] MEDS: LYRICA PO SCH (13:34)
[2018-05-21] MEDS: LOVENOX SUBQ SCH (13:35)
--- NOTE | 2018-05-21 13:36 | Diag Imaging Result Document ---
PROCEDURE NAME: MYOCARDIAL PERF SCAN, STR/REST - 05/21/2018 PROCEDURE PERFORMED: Lexiscan Cardiolite stress test. DESCRIPTION OF PROCEDURE: Lexiscan was infused per standard protocol. There was no chest pain. Stress electrocardiogram was negative for ischemia. Following Lexiscan infusion, Cardiolite was injected. There were 14.5 mCi of Cardiolite injected for the rest phase and 43 mCi of Cardiolite injected for the stress phase. Images revealed significant chest wall and diaphragmatic attenuation, normal left ventricular cavity size, normal myocardial perfusion. Left ventricular ejection fraction by gated SPECT was 72%. CONCLUSIONS: 1. No chest pain. 2. Negative Lexiscan stress electrocardiogram. 3. Normal myocardial perfusion. 4. Left ventricular ejection fraction by gated SPECT was 72%. cc: MD Edin Rose MD
[2018-05-21] MEDS: FLEXERIL PO PRN (14:26)
[2018-05-21 16:14] VITALS: BP 151/49
--- NOTE | 2018-05-21 17:32 | CARDIOLOGY PROGRESS NOTE ---
DATE: 05/21/2018 CHIEF COMPLAINT: Chest discomfort. SUBJECTIVE: Mr. Rose is feeling better. He has ill defined discomfort in the upper abdomen, otherwise no chest pain. OBJECTIVE: Vital signs: Blood pressure 151/49, temperature 98.1, pulse 84, respirations 16. General: He is awake, alert, and oriented, in no distress. HEENT: Unremarkable. Chest: Clear to auscultation and percussion. Heart: Sounds are regular and rhythmic. No gallop or murmur. Abdomen: No tenderness. Extremities: Show no edema. Neurologic: Follows commands. Moves all four extremities. BLOOD WORK: Electrolytes, BUN, and creatinine normal today. His blood work from yesterday - total cholesterol 151, LDL 100, HDL 39, triglycerides 123. His PTH was 105. Today, we did a nuclear stress test that shows normal myocardial perfusion with ejection fraction of 72%. Echocardiogram done yesterday shows normal left ventricular systolic function. Echocardiogram was basically normal. A parathyroid scan is negative for parathyroid abnormalities. A chest CT showed no evidence of acute disease and I did not see any significant coronary calcifications. IMPRESSION: 1. The patient presented with atypical chest discomfort. 2. History of hypertension. 3. History of seizure disorder. RECOMMENDATIONS: At this time, there is no objective evidence of myocardial or coronary disease on this patient. At this time, I believe the patient can be safely discharged home with instructions to follow up with his primary care provider. He does not require any further invasive evaluation. Please call me if you have any questions or concerns. cc: Edin Kirk MD
--- NOTE | 2018-05-21 20:19 | DISCHARGE SUMMARY ---
ADMISSION DATE: 05/19/2018 DISCHARGE DATE: 05/21/2018 The patient came in with chest pain. He has a history of seizure disorder. He has vitamin D deficiency. His workup included echocardiogram which was unremarkable, EF 65%. He did develop some hypercalcemia but it was a very mild elevation 10.3 but he did have a low phosphorus at 2.5. He did have an elevated PTH but his parathyroid scan was normal so I am not really sure this is true hyperparathyroidism. He has had calciums though that have been high previously like in the s but I am not entirely sure this may not be related to other issues. His urine calcium is definitely elevated but I think he is stabilized and we will discharge him home. At this point though the parathyroid scan did not show any hyperplasia so I do not think surgical treatment is required and I am a little reluctant to give him calcium lowering agents as his level is normal at this time, may need to consider referral to Endocrine and let them sort it out as an outpatient. Any case overall he has improved. DISCHARGE MEDICATIONS: Coreg 6.25 b.i.d., folic acid 1 daily, Keppra 1 g b.i.d. and Norvasc 10 daily. His myocardial perfusion scan was also unremarkable and normal. DISCHARGE CONDITION: Is stable. Will refer him to you [facility] PCP and follow. TIME SPENT: 32 minutes. cc: Srinivas Myrick MD
--- NOTE | 2018-05-22 15:01 | EKG Report ---
Test Performed on : 05/19/2018 9:09:24 PM Test Reason : 4N. NO ORDER IN MT Blood Pressure : / mmHG Vent. Rate : 054 BPM Atrial Rate : 054 BPM P-R Int : 170 ms QRS Dur : 104 ms QT Int : 456 ms P-R-T Axes : 027 011 020 degrees QTc Int : 432 ms Sinus bradycardia. Possible Left atrial enlargement Incomplete right bundle branch block T wave abnormality, consider anterior ischemia Abnormal ECG When compared with ECG of 19-MAY-2018 13:09, premature ventricular complexes. are no longer present Vent. rate has decreased BY 32 BPM Confirmed by Daniela CHAPARRO, Spike ([id number]) on 05/23/2018 8:53:59 AM
== END 2018-05-21 17:41 | disposition home or self-care (01) | DRG 313 ==
LOC: ED 12:57 → SUATTDRO 17:41 → 4N 17:41
PROVIDERS: ATTEND Internal Medicine
CPT/HCPCS: 71020; 71046; 71250; 74176; 78071; 78452; 80048; 80053; 80061; 80074; 81050; 82306; 82340; 82550; 82607; 82746; 83721; 83735; 83880; 83970; 84100; 84439; 84443; 84484; 85025; 85027; 85379; 85651; 86140; 93005; 93010; 93017; 93306; 96365; 99285; A9270; A9500; J1650; J1953; J2785; J7030; J7050

== ENCOUNTER 2018-08-28 07:59 | Inpatient (IN) ==
--- NOTE | 2018-08-22 14:01 | EKG Report ---
Test Performed on : 08/22/2018 1:36:13 PM Test Reason : PAT Blood Pressure : / mmHG Vent. Rate : 057 BPM Atrial Rate : 057 BPM P-R Int : 162 ms QRS Dur : 104 ms QT Int : 416 ms P-R-T Axes : 033 041 040 degrees QTc Int : 404 ms Sinus bradycardia. Incomplete right bundle branch block Borderline ECG When compared with ECG of 20-MAY-2018 06:12, T wave inversion no longer evident in Anterior leads Confirmed by Joel Mckeon MD ([id number]) on 08/22/2018 8:57:45 PM
[2018-08-22 14:12] LABS: URINE SOURCE CLEAN CATCH
[2018-08-22 14:21] LABS: HEMATOCRIT 50.6 % (42.0-52.0); HEMOGLOBIN 16.5 g/dL (14.0-18.0); IMM GRAN# 0.02 X1000 (0.0-0.04); IMM GRAN% 0.2 % (0.0-0.5); LYMPH# 3.13 X1000 (1.2-3.4); LYMPH% 31.4 % (20.5-51.1); MCH 30.2 PG (27-31); MCHC 32.6 g/dL (33-37); MCV 92.7 FL (81-99); MONO# 1.02 X1000 (0.11-0.59); MONO% 10.2 % (1.7-9.3); MPV 11.8 FL (7.4-10.4); NEUT# 5.81 X1000 (1.4-6.5); NEUT% 58.2 % (42.2-75.2); PLT 252 X1000 (130-400); RBC 5.46 XMIL (4.7-6.1); RDW 14.7 % (11.5-14.5); WBC 9.98 X1000 (4.8-10.8)
[2018-08-22 14:25] LABS: BILIRUBIN URINE NEGATIVE (NEGATIVE); BLOOD URINE NEGATIVE (NEGATIVE); COLOR YELLOW; GLUCOSE URINE NEGATIVE (NEGATIVE); INR 0.86; KETONE URINE NEGATIVE (NEGATIVE); LEUKOCYTES URINE NEGATIVE (NEGATIVE); NITRITE URINE NEGATIVE (NEGATIVE); PROTEIN URINE 70 mg/dL (NEGATIVE); PROTIME 12.5 Seconds (11.0-16.0); PTT 33.4 Seconds (22.3-41.8); SP GRAVITY URINE 1.025; TURBIDITY URINE CLEAR (CLEAR); UR EPITHELIAL CELLS <10 /HPF (<10); URINE BACTERIA NEGATIVE /HPF; URINE RBC <10 /HPF (<10); URINE WBC <10 /HPF (<10); UROBILINOGEN URINE NORMAL (NORMAL)
[2018-08-22 14:44] LABS: AGAP 9; BUN 12 mg/dL (8-22); CALCIUM 10.6 mg/dL (8.8-10.2); CHLORIDE 99 mmol/L (98-107); COSMO 275; ESTIMATED GFR > 60; GLUCOSE 89 mg/dL (70-104); POTASSIUM 4.2 mmol/L (3.5-5.1); SODIUM 138 mmol/L (136-145); TCO2 30 mmol/L (25-35)
[2018-08-28] MEDS ORDERED: REGLAN ONE (08:19)
[2018-08-28] MEDS ORDERED: PEPCID ONE (08:19)
[2018-08-28] MEDS ORDERED: VALIUM ONE (08:20)
[2018-08-28] MEDS ORDERED: LR 1,000 ML ONE (08:20)
[2018-08-28] MEDS ORDERED: KEFZOL 1 GM/D5W 2 GM/100 ML IVPB ONE (08:20)
[2018-08-28] MEDS ORDERED: LYRICA ONE (08:25)
[2018-08-28] MEDS ORDERED: CELEBREX ONE (08:25)
[2018-08-28] MEDS ORDERED: COLACE ONE (08:25)
[2018-08-28] MEDS ORDERED: DIPRIVAN 1% ONE (09:08)
[2018-08-28] MEDS ORDERED: TORADOL ONE (09:56)
[2018-08-28] MEDS ORDERED: MARCAINE 0.25% PF ONE (09:56)
[2018-08-28] MEDS ORDERED: CYKLOKAPRON 1,000 MG/NS 1,000 MG/100 ML IVPB ONE (09:56)
[2018-08-28] MEDS ORDERED: SODIUM CHLORIDE 0.9% ONE (09:56)
[2018-08-28] MEDS ORDERED: DURAMORPH ONE (09:56)
[2018-08-28] MEDS ORDERED: NEOSPORIN G.U. IRRIGANT ONE (09:57)
[2018-08-28] MEDS ORDERED: EXPAREL 1.3% ONE (09:57)
[2018-08-28] MEDS ORDERED: DECADRON ONE (11:05)
[2018-08-28] MEDS ORDERED: DILAUDID ONE ×2 (11:05→13:01)
[2018-08-28] MEDS ORDERED: XYLOCAINE-MPF 2% ONE (11:05)
[2018-08-28] MEDS ORDERED: ZOFRAN ONE (11:05)
[2018-08-28] MEDS ORDERED: OFIRMEV 1000 MG/ISOTONIC SOLN 1,000 MG/100 ML BOTTLE ONE (11:05)
[2018-08-28] MEDS ORDERED: ROBINUL ONE (11:09)
[2018-08-28] MEDS ORDERED: EPHEDRINE ONE (11:10)
[2018-08-28 11:41] LABS: URINE SOURCE CATH
[2018-08-28 11:53] LABS: BILIRUBIN URINE NEGATIVE (NEGATIVE); BLOOD URINE NEGATIVE (NEGATIVE); COLOR YELLOW; GLUCOSE URINE NEGATIVE (NEGATIVE); KETONE URINE NEGATIVE (NEGATIVE); LEUKOCYTES URINE NEGATIVE (NEGATIVE); NITRITE URINE NEGATIVE (NEGATIVE); PH URINE 5.5; PROTEIN URINE NEGATIVE (NEGATIVE); SP GRAVITY URINE 1.017; TURBIDITY URINE CLEAR (CLEAR); UROBILINOGEN URINE NORMAL (NORMAL)
[2018-08-28 11:55] LABS: UR EPITHELIAL CELLS <10 /HPF (<10); URINE BACTERIA NEGATIVE /HPF; URINE RBC <10 /HPF (<10); URINE WBC <10 /HPF (<10)
[2018-08-28] MEDS ORDERED: NS 1,000 ML ONE (13:31)
[2018-08-28] MEDS: DILAUDID ONE ×2 (13:33→13:53)
[2018-08-28] MEDS ORDERED: ZOFRAN IV PRN (14:15)
[2018-08-28] MEDS ORDERED: OXY IR PO PRN (14:15)
[2018-08-28] MEDS ORDERED: ZOFRAN ODT PO PRN (14:15)
[2018-08-28] MEDS ORDERED: MORPHINE IV PRN ×3 (14:15)
--- NOTE | 2018-08-28 14:23 | OPERATIVE NOTE ---
PROCEDURE DATE: 08/28/2018 PREOPERATIVE DIAGNOSIS: Traumatic degenerative joint disease, left hip. POSTOPERATIVE DIAGNOSIS: Traumatic degenerative joint disease, left hip. PROCEDURE: 1. Removal of TFN bell and hardware, left femur and hip. 2. Left anterior hip replacement. SURGEON: Omari Arizmendi MD. ORGANIC SECTION TECHNICAL LEAD: JESU Smith. Mr. Patel was necessary for proper retraction and manipulation of the leg during the case. ANESTHESIA: General. COMPLICATION: None. PROCEDURE IN DETAIL: This 57-year-old male with collapse of the femoral head, status post TFN fixation of the hip in the past, presents for surgical hip replacement and hardware removal. The risks, benefits, and no guarantees were discussed and he is willing to proceed. He was taken to the operating room and satisfactory anesthesia obtained. The patient was placed on the Hudson table and left hip prepped and draped in the usual sterile fashion. A time-out was taken to confirm operative site, procedure, and patient. Afterwards, previous incisions about the TFN were utilized. A threaded removal device was inserted on the top of the TFN under fluoroscopic guidance. The setscrew was backed up to allow removal of the helical blade. A threaded removal device was inserted on the helical blade and the helical blade removed. Next, the 2 distal locking screws were removed with a hex head screwdriver. A slap hammer was then used to remove the TFN nail without difficulty. An anterior hip was then undertaken through an incision starting roughly 1 cm distal and lateral to the anterosuperior iliac spine and carried 12 mm over the anterolateral thigh. Dissection was carried down through the skin and subcutaneous fat to the fascia tensor fascia mindy. This was then incised in line with the incision and blunt dissection undertaken down to the anterior hip capsule. Cobra retractors were placed over the superior and inferior aspect of the femoral neck and a capsulotomy incision made. An osteotomy was made to remove and resect the femoral neck at the appropriate resection level. The femoral head was noted to crumble and was removed piecemeal with a rongeur. A very small Cobra retractor was placed directly on the anterior acetabular bone to retract the femoral nerve and protect the neurovascular structures. Reaming of the acetabulum was undertaken up to a 53 reamer with good corticocancellous bone. A [place] Napoleon 54 mm outer diameter Duofix ZHAO coated cup was impacted in the acetabulum in roughly 45 degrees of abduction and 15 degrees of anteversion. Secure press-fit fixation of the cup was achieved. For additional security, a 25 length screw was placed in the superior position of the cup followed by a 36 mm inner diameter polyethylene 0 degree bearing. The bearing was impacted into the cup. The bearing cup interface and cup bone interface was checked and noted to be stable. Afterwards, the traction was released off the leg and the leg externally rotated and the hip extended using the Hudson table to facilitate broaching of the proximal femur. Sequential broaching of the proximal femur was undertaken up to a size 15 corail stem. This had good axial and rotational stability. A high offset geometry reproduced the best mandaeism of anatomy with an 8.5 neck length taper. Trial stem was removed and a high offset size 15 carotid stem impacted into the proximal femur with secure fixation. A 36 mm ceramic head with an 8.5 taper was then placed onto this and impacted onto the stem and the hip reduced. C-arm was used to verify accurate fracture reduction and hardware placement. The stability was assessed by externally rotating the leg and extending the hip all the way to the floor without any anterior stability. The hip was flexed and internal rotation undertaken with no posterior instability. The wound was copiously irrigated with irrigant. The joint capsule was injected with Exparel for pain management. A Hemovac drain was placed. All incisions were then closed with 0 Vicryl in the deep fascia, 2-0 Vicryl in the subcu and skin aileen on the skin edges. Sterile dressings were placed over these areas and the patient was recovered from anesthesia and transferred to the recovery room in stable condition. No intraoperative complications were noted. Instrument count and sponge count was correct at the time of closure. cc: Jorge A Arizmendi MD MTDD
[2018-08-28] MEDS: NS 1,000 ML IV SCH ×2 (14:50→17:12)
--- NOTE | 2018-08-28 15:05 | ORTHOPAEDICS PROGRESS NOTE ---
DATE: 08/28/2018 Mr. Rose is seen status post total hip replacement. At the present time, he is afebrile with stable vital signs. He appears to be motor and sensory intact in terms of femoral and sciatic nerve function. The bandage is clean and dry. Currently he is comfortable. We have will see him tomorrow for mobilization. We will consider discharge tomorrow if he is mobilizing well. cc: Jorge A Arizmendi MD
[2018-08-28] MEDS ORDERED: CYKLOKAPRON 1,000 MG/NS 1,000 MG/100 ML IVPB IV ONE (17:00)
[2018-08-28] MEDS: TYLENOL PO SCH (17:11)
[2018-08-28] MEDS: ULTRAM PO SCH ×2 (17:17→20:56)
[2018-08-28] MEDS: COLACE PO SCH (20:55)
[2018-08-28] MEDS: CELEBREX PO SCH (20:56)
[2018-08-28] MEDS: KEPPRA PO SCH (20:57)
[2018-08-28] MEDS: ZANAFLEX PO SCH (20:57)
[2018-08-28] MEDS: KEFZOL 2 GM/D5W 2 GM/50 ML IVPB IV SCH (20:58)
[2018-08-28] MEDS: LYRICA PO SCH (20:58)
[2018-08-28] MEDS: PERIDEX MT SCH (20:58)
[2018-08-28] MEDS ORDERED: CYMBALTA PO SCH (23:45)
[2018-08-29] MEDS: COREG PO SCH ×2 (01:24→10:03)
[2018-08-29] MEDS: TYLENOL PO SCH ×3 (01:24→11:23)
[2018-08-29] MEDS: KEFZOL 2 GM/D5W 2 GM/50 ML IVPB IV SCH (03:14)
[2018-08-29] MEDS: NS 1,000 ML IV SCH (03:14)
[2018-08-29] MEDS: ULTRAM PO SCH ×2 (03:15→10:01)
[2018-08-29 06:21] LABS: HEMATOCRIT 34.2 % (42.0-52.0); HEMOGLOBIN 11.2 g/dL (14.0-18.0)
[2018-08-29 06:44] LABS: AGAP 7; BUN 10 mg/dL (8-22); CALCIUM 9.2 mg/dL (8.8-10.2); CHLORIDE 102 mmol/L (98-107); COSMO 273; CREATININE 0.8 mg/dL (0.7-1.2); ESTIMATED GFR > 60; GLUCOSE 176 mg/dL (70-104); POTASSIUM 4.4 mmol/L (3.5-5.1); SODIUM 135 mmol/L (136-145); TCO2 26 mmol/L (25-35)
[2018-08-29] MEDS: ZANAFLEX PO SCH (07:55)
--- NOTE | 2018-08-29 08:25 | ORTHOPAEDICS PROGRESS NOTE ---
DATE: 08/29/2018 SUBJECTIVE DATA: Mr. Tao is seen on postop day 1 of his left hip replacement surgery. He states he is doing well at this time. He states he is having about a 3/10 pain. He reports he has not been on physical therapy at this time. OBJECTIVE DATA: There is good sensation left lower extremity. The bandages are clean, dry, and intact. There is negative Homans sign. There is good sensation left lower extremity. There is good pedal pulses. The vital signs are stable. LABS: Current hemoglobin and hematocrit are 11.2 and 34.2. ASSESSMENT: Avascular necrosis, left hip with trochanteric fixation nail removal and left anterior hip replacement. PLAN: Plan on sending Mr. tao home today with home antibiotics, Bactrim DS b.i.d. for [address] also place him on some pain medication, [place] 10 as needed. We will also place him on aspirin twice daily for DVT prophylaxis. We will need to see him in the office in roughly 10 to 14 days, get his aileen removed. We will check back on him then. Dictated by JESU Smith for Jorge A Arizmendi MD cc: JESU Smith MD
[2018-08-29] MEDS ORDERED: FOLIC ACID PO SCH (09:00)
[2018-08-29] MEDS ORDERED: CYMBALTA PO SCH (09:00)
[2018-08-29] MEDS ORDERED: PRINIVIL PO SCH (09:00)
[2018-08-29] MEDS ORDERED: NORVASC PO SCH (09:00)
[2018-08-29] MEDS ORDERED: PEPCID PO SCH (09:00)
[2018-08-29] MEDS ORDERED: ASPIRIN PO SCH (09:00)
[2018-08-29] MEDS: OXY IR PO PRN ×2 (10:00→12:42)
[2018-08-29] MEDS: COLACE PO SCH (10:01)
[2018-08-29] MEDS: CELEBREX PO SCH (10:02)
[2018-08-29] MEDS: KEPPRA PO SCH (10:03)
[2018-08-29] MEDS: PERIDEX MT SCH (10:03)
[2018-08-29] MEDS: LYRICA PO SCH (10:05)
[2018-08-29 11:46] VITALS: BP 119/65
== END 2018-08-29 12:49 | disposition home health service (06) | DRG 470 ==
LOC: SURHOLD 07:59 → 4N 12:01
PROVIDERS: ADMIT Orthopaedic Surgery Adult Reconstructive Orthopaedic Surgery; ATTEND Orthopaedic Surgery Adult Reconstructive Orthopaedic Surgery
CPT/HCPCS: 76000; 80048; 81001; 85014; 85018; 85025; 85610; 85730; 86850; 86900; 86901; 88304; 88311; 93005; 93010; 94761; 94799; 97110; 97162; 97530; A9270; C9290; J0131; J0690; J1100; J1170; J1885; J2274; J2275; J2405; J7030; J7120; Q9974; S0020